=== PATIENT | female | born 1965 ===

== ENCOUNTER 2020-10-25 10:22 | Outpatient (REF) | payer OTHER, SELFPAY ==
[2020-10-25 11:27] LABS: Alanine Aminotransferase 23 U/L (0-31); Albumin Level 4.2 g/dL (3.5-5.0); Alkaline Phosphatase 126 U/L (39-117); Anion Gap 11 (12-20); Aspartate Amino Transferase 22 U/L (5-31); Bilirubin Total 0.5 mg/dL (0.0-1.0); Blood Urea Nitrogen 18 mg/dL (9-16); Calcium 9.2 mg/dL (8.4-10.2); Carbon Dioxide 28 mmol/L (22-29); Chloride 107 mmol/L (96-108); Cholesterol 143 mg/dL; Estimated Glomerular Filt Rate > 60; Glucose Fasting 92 mg/dL (60-99); HDL Cholesterol 63 mg/dL; LDL Cholesterol Calculated 68 mg/dl; Potassium 4.2 mmol/l (3.3-5.1); Sodium 142 mmol/L (135-145); Total Protein 6.8 g/dL (6.5-8.0); Triglycerides 61 mg/dL
== END 2020-10-25 10:23 | disposition home or self-care (01) ==
LOC: HO.LAB 10:22
PROVIDERS: PCP Internal Medicine; Visit Provider Internal Medicine
DX: E78.00 Pure hypercholesterolemia, unspecified (principal)
CPT/HCPCS: 36415; 80053; 80061

== ENCOUNTER 2020-12-13 15:18 | Outpatient (REF) | payer OTHER, SELFPAY ==
--- NOTE | ~2020-12-13 | MM_ITS ---
EXAMINATION: MM SCREENING DIGITAL BREAST TOMOSYNTHESIS, BILATERAL CLINICAL INFORMATION: Screening. Asymptomatic. The lifetime risk of breast cancer based on the Tyrer-Cuzick Model is 7%. COMPARISON: Mammography: 12/08/2019, 09/10/2018 TECHNIQUE: Digital breast tomosynthesis is performed in both the craniocaudal and mediolateral oblique views along with computer-aided detection (CAD). Synthesized 2D images are generated from the tomosynthesis. FINDINGS: There are scattered areas of fibroglandular density (ACR BI-RADS breast composition Category b). There is fine fibronodular parenchymal parenchymal pattern. Small stable nodularity again noted medial left breast similar to prior studies. There is no interval developing density or architectural abnormality. No abnormal calcifications. No significant changes. MM/MM tomosynthesis screening BI IMPRESSION: No mammographic evidence of malignancy. ASSESSMENT: BI-RADS 2: Benign RECOMMENDATION: Routine annual mammography screening. This patient's information was entered into a reminder system with a target due date for their next mammogram.
== END 2020-12-13 15:19 | disposition home or self-care (01) ==
LOC: HO.MAMMO 15:18
PROVIDERS: PCP Internal Medicine; Visit Provider Internal Medicine
DX: Z12.31 Encounter for screening mammogram for malignant neoplasm of breast (principal)
CPT/HCPCS: 77063; 77067

== ENCOUNTER 2021-08-29 08:33 | Outpatient (REF) | payer OTHER, SELFPAY ==
[2021-08-29 10:00] LABS: Alanine Aminotransferase 23 U/L (0-31); Albumin Level 4.3 g/dL (3.5-5.0); Alkaline Phosphatase 137 U/L (39-117); Anion Gap 12 (12-20); Aspartate Amino Transferase 23 U/L (5-31); Bilirubin Total 0.6 mg/dL (0.0-1.0); Blood Urea Nitrogen 18 mg/dL (9-16); Calcium 9.4 mg/dL (8.4-10.2); Carbon Dioxide 27 mmol/L (22-29); Chloride 105 mmol/L (96-108); Cholesterol 174 mg/dL; Estimated Glomerular Filt Rate > 60; Glucose Fasting 92 mg/dL (60-99); HDL Cholesterol 62 mg/dL; LDL Cholesterol Calculated 93 mg/dl; Potassium 3.9 mmol/L (3.3-5.1); Sodium 140 mmol/L (135-145); Total Protein 7.1 g/dL (6.5-8.0); Triglycerides 96 mg/dL
== END 2021-08-29 08:34 | disposition home or self-care (01) ==
LOC: HO.LAB 08:33
PROVIDERS: PCP Internal Medicine; Visit Provider Internal Medicine
DX: E66.9 Obesity, unspecified (principal); E78.5 Hyperlipidemia, unspecified
CPT/HCPCS: 36415; 80053; 80061; 84443

== ENCOUNTER 2021-12-20 10:42 | Outpatient (REF) | payer OTHER, SELFPAY ==
--- NOTE | ~2021-12-20 | MM_ITS ---
EXAMINATION: MM SCREENING DIGITAL BREAST TOMOSYNTHESIS, BILATERAL CLINICAL INFORMATION: Screening. Asymptomatic. The lifetime risk of breast cancer based on the Tyrer-Cuzick Model is 7%. COMPARISON: Mammography: 12/13/2020, 12/08/2019, 09/10/2018 TECHNIQUE: Digital breast tomosynthesis is performed in both the craniocaudal and mediolateral oblique views along with computer-aided detection (CAD). Synthesized 2D images are generated from the tomosynthesis. Additional bilateral MLO views are provided. FINDINGS: There are scattered areas of fibroglandular density (ACR BI-RADS breast composition Category b). There are no significant masses, abnormal calcifications, or other abnormalities. Background stromal markings are stable. No developing density. No architectural abnormality. The axilla and skin contours are unremarkable. No significant changes. MM/MM tomosynthesis screening BI IMPRESSION: No mammographic evidence of malignancy. ASSESSMENT: BI-RADS 1: Negative RECOMMENDATION: Routine annual mammography screening. This patient's information was entered into a reminder system with a target due date for their next mammogram.
== END 2021-12-20 10:43 | disposition home or self-care (01) ==
LOC: HO.MAMMO 10:42
PROVIDERS: Visit Provider Internal Medicine
DX: Z12.31 Encounter for screening mammogram for malignant neoplasm of breast (principal)
CPT/HCPCS: 77063; 77067

== ENCOUNTER 2022-12-12 08:53 | Outpatient (REF) | payer OTHER, SELFPAY ==
[2022-12-12 09:09] LABS: MANUAL DIFF FLAG NO
[2022-12-12 09:20] LABS: Basophils Percent Auto 0.8 % (0-2); Eosinophils Absolute Auto 0.1 X10*3/uL (0.0-0.4); Eosinophils Percent Auto 2.4 % (0-4); Hematocrit 39.2 % (37.0-47.0); Hemoglobin 12.7 g/dl (12.0-16.0); Imm Gran Abs Auto 0.02 X10*3/uL (0.00-0.03); Imm Gran Pct Auto 0.4 % (0.0-0.4); Lymphocytes Absolute Auto 1.3 X10*3/uL (1.2-4.9); Mean Corpuscular HGB Conc 32.4 g/dl (31.0-35.0); Mean Corpuscular Hemoglobin 27.3 pg (27.0-33.0); Mean Corpuscular Volume 84.3 fL (80.0-98.0); Mean Platelet Volume 11.3 fL (9.4-12.3); Monocytes Absolute Auto 0.3 X10*3/uL (0.1-1.2); Monocytes Percent Auto 6.1 % (2-11); Neutrophils Absolute Auto 3.3 x10*3/uL (2.0-8.3); Neutrophils Percent Auto 65.3 % (45-73); Platelet Count 192 X10*3/uL (160-400); Red Blood Count 4.65 X10*6/uL (4.20-5.50); Red Cell Distribution Width 13.5 % (11.0-16.0); White Blood Count 5.1 X10*3/uL (4.8-10.8)
[2022-12-12 09:41] LABS: Appearance Urine Clear; Color Urine Yellow; Glucose Urine UA Negative (Negative); Leukocyte Esterase Urine Negative (Negative); Nitrite Urine Negative (Negative); PH 5.5 (5.0-9.0); Urine Blood Negative (Negative); Urine Ketones Negative (Negative); Urine Protein Negative (Neg-Trace)
[2022-12-12 10:08] LABS: Alanine Aminotransferase 19 U/L (0-31); Albumin Level 4.4 g/dL (3.5-5.0); Alkaline Phosphatase 104 U/L (39-117); Anion Gap 12 (12-20); Aspartate Amino Transferase 26 U/L (5-31); Bilirubin Total 0.7 mg/dL (0.0-1.0); Blood Urea Nitrogen 18 mg/dL (9-16); Calcium 9.5 mg/dL (8.4-10.2); Carbon Dioxide 27 mmol/L (22-29); Chloride 106 mmol/L (96-108); Cholesterol 167 mg/dL; Estimated Glomerular Filt Rate > 60; Glucose Fasting 93 mg/dL (60-99); HDL Cholesterol 65 mg/dL; LDL Cholesterol Calculated 91 mg/dl; Potassium 4.3 mmol/L (3.3-5.1); Sodium 141 mmol/L (135-145); Total Protein 6.8 g/dL (6.5-8.0); Triglycerides 58 mg/dL
[2022-12-12 10:25] LABS: Vitamin D 25-OH Total 34.1 ng/mL (>30)
== END 2022-12-12 08:54 | disposition home or self-care (01) ==
LOC: HO.LAB 08:53
PROVIDERS: PCP Internal Medicine; Visit Provider Internal Medicine
DX: E78.00 Pure hypercholesterolemia, unspecified (principal); E55.9 Vitamin D deficiency, unspecified; R30.0 Dysuria; I10 Essential (primary) hypertension
CPT/HCPCS: 36415; 80053; 80061; 81003; 82306; 84443; 85025

== ENCOUNTER 2022-12-26 10:48 | Outpatient (REF) | payer OTHER, SELFPAY ==
--- NOTE | ~2022-12-26 | MM_ITS ---
EXAMINATION: MM SCREENING DIGITAL BREAST TOMOSYNTHESIS, BILATERAL CLINICAL INFORMATION: Screening. Asymptomatic. The lifetime risk of breast cancer based on the Tyrer-Cuzick Model is 7%. COMPARISON: Mammography: 12/20/2021, 12/13/2020, 12/08/2019, 09/10/2018 TECHNIQUE: Digital breast tomosynthesis is performed in both the craniocaudal and mediolateral oblique views along with computer-aided detection (CAD). Synthesized 2D images are generated from the tomosynthesis. FINDINGS: There are scattered areas of fibroglandular density (ACR BI-RADS breast composition Category b). There are no significant masses, abnormal calcifications, or other abnormalities. There is stable smooth nodularity medial left breast, likely intramammary nodes. No developing density or architectural abnormality. The axilla and skin contours are unremarkable. No significant changes. MM/MM tomosynthesis screening BI IMPRESSION: No mammographic evidence of malignancy. ASSESSMENT: BI-RADS 2: Benign RECOMMENDATION: Routine annual mammography screening. This patient's information was entered into a reminder system with a target due date for their next mammogram.
== END 2022-12-26 10:49 | disposition home or self-care (01) ==
LOC: HO.MAMMO 10:48
PROVIDERS: PCP Internal Medicine; Visit Provider Nurse Practitioner
DX: Z12.31 Encounter for screening mammogram for malignant neoplasm of breast (principal)
CPT/HCPCS: 77063; 77067

== ENCOUNTER 2023-05-03 08:15 | Outpatient (REF) | payer OTHER, SELFPAY ==
[2023-05-03 09:30] LABS: Alanine Aminotransferase 25 U/L (0-31); Albumin Level 4.3 g/dL (3.5-5.0); Alkaline Phosphatase 102 U/L (39-117); Anion Gap 10 (12-20); Aspartate Amino Transferase 29 U/L (5-31); Bilirubin Total 0.5 mg/dL (0.0-1.0); Blood Urea Nitrogen 17 mg/dL (9-16); Calcium 9.7 mg/dL (8.4-10.2); Carbon Dioxide 27 mmol/L (22-29); Chloride 107 mmol/L (96-108); Cholesterol 172 mg/dL; Estimated Glomerular Filt Rate > 60; Glucose Fasting 88 mg/dL (60-99); HDL Cholesterol 64 mg/dL; LDL Cholesterol Calculated 88 mg/dl; Potassium 3.7 mmol/L (3.3-5.1); Sodium 140 mmol/L (135-145); Total Protein 7.2 g/dL (6.5-8.0); Triglycerides 103 mg/dL
== END 2023-05-03 08:16 | disposition home or self-care (01) ==
LOC: HO.LAB 08:15
PROVIDERS: PCP Internal Medicine; Visit Provider Internal Medicine
DX: E78.00 Pure hypercholesterolemia, unspecified (principal)
CPT/HCPCS: 36415; 80053; 80061

== ENCOUNTER 2023-05-09 11:16 | Outpatient (AMB) | payer OTHER, SELFPAY ==
[2023-05-09 11:23] VITALS: BP 120/78; PULSE 71; O2SAT 97; BMI 30.3
--- NOTE | 2023-05-09 11:23 | A.OFFPC_ITS ---
Vital Signs 05/09/23 11:23 Height 4 ft 10 in Weight 145 lb 2 oz BMI 30.3 BP 120/78 Blood Pressure Location Lt brachial Position Sitting Pulse 71 Pulse Source Pulse Oximeter Pulse Oximetry (%) 97 Oxygen Delivery Method Room Air Intake Visit Reasons: hyperlipidemia, asthma Elderly Companion Required: No Accompanied by: Self / Same As Patient Allergies No Known Allergies Allergy (Verified 05/09/23 11:46) Medication List - Last Reconciled 05/09/23 by Chente Bill MD atorvastatin 10 mg PO DAILY 90 days cetirizine (All Day Allergy (cetirizine)) 10 mg PO DAILY PRN 90 days fluticasone propionate 50 mcg/actuation 2 sprays intranasal DAILY 30 days Ventolin HFA 90 mcg/actuation (albuterol sulfate) 2 puffs inhalation Q6H PRN 30 days NS Tobacco use date assessed: 05/09/23 Dental Screening Dental Screen Date: 05/09/23 Did you have a dental visit in the last 12 months?: Yes Did you have a dental problem in the last 6 months where you did not have access to dental care?: No Was dental information given to patient?: Patient has dentist HPI hyperlipidemia, asthma HPI Details Patient comes in today for her follow up visit States that she has been experiencing recurrent bilateral inguinal pains lately and would like to see if she can get a referral to see gynecology to get this checked out Recalls getting a pelvic US done a few years ago but is not sure what the US showed She denies any headaches or dizziness Denies any chest pains, no SOB - states that her asthma has been better controlled lately No nausea/vomiting and no change in bowel habits noted Adds that she would like to get a referral to see someone about possibly getting breast reduction surgery - states that she has frequent neck and upper back pains and feels that her breasts are too large for her size (she is 4'10 ) and that they are a predominant cause of her neck and back pains Needs her Atorvastatin Rx refilled Had her follow up labs done last week - to discuss her results [facility] Medical History (Updated 05/09/23 @ 11:58 by Chente Bill MD) Allergic rhinitis Asthma Dyslipidemia VICENTA (generalized anxiety disorder) Ingrown toenail Insomnia Mild asthma Obese Obesity (BMI 30-39.9) Overweight (BMI 25.0-29.9) Pure hypercholesterolemia Surgical History History of eye surgery History of hysteroscopy History of tubal ligation Family History Father Liver problem Alcoholism Substance use disorder Mother Hypertension Maternal Grandmother Heart disease Maternal Grandfather No problems noted. Paternal Grandfather Throat cancer Social History Housing: Apartment Alcohol intake: current Alcohol intake frequency: holidays/special occasions only Patient Tobacco Use Status: Never used Tobacco e-Cigarette/Vaping Use: Never Used Second Hand Smoke Exposure: No service: No Current occupational status: unemployed Cognitive needs: No Hearing needs: No Vision needs: No Questionnaire PHQ-9 Over the last 2 weeks, how often have you been bothered by any of the following problems? 1. Little interest or pleasure in doing things: not at all 2. Feeling down, depressed, or hopeless: not at all 3. Trouble falling or staying asleep, or sleeping too much: several days 4. Feeling tired or having little energy: several days 5. Poor appetite or overeating: nearly every day 6. Feeling bad about yourself - or that you are a failure or have let yourself or your family down: not at all 7. Trouble concentrating on things, such as reading the newspaper or watching television: not at all 8. Moving or speaking so slowly that other people could have noticed. Or the opposite - being so fidgety or restless that you have been moving around a lot more than usual: not at all 9. Thoughts that you would be better off or of hurting yourself in some way: not at all Total score: 5 Depression Screening Interpretation: Positive Depression Screening Follow-up: Follow-[place] Visit Requested [id number] - PHQ-9 Billing: Yes Source: Developed by Drs. Willem El, Violeta Kwon, Khai Lopez and colleagues, with an educational alex from [email or web address]. Thrive Questionnaire Date Thrive assessed: 05/09/23 I am a: Patient What is your living situation today?: I have a steady place to live Within the past 12 months, did the food you bought not last and you didn't have the money to get more?: Never true Within the past 12 months, did you worry whether your food would run out before you got money to buy more?: Never true Do you have trouble paying for medicines?: No Do you have trouble getting transportation to medical appointments?: No Do you have trouble paying your heating and electricity bill?: No Do you have trouble taking care of your child, family member or friend?: No Do you have trouble with day-to-day activities such as bathing, preparing meals, shopping, managing finances, etc.?: No Are you currently unemployed and looking for a job?: No Are you interested in more education?: No Please select the resources that you would like help with: None Currently or been in a relationship where the following occur: no concerns reported AUDIT C Alcohol Use Questionnaire (AUDIT-C) 1. How often do you have a drink containing alcohol?: Monthly or less 2. How many drinks containing alcohol do you have on a typical day when you are drinking?: 1 or 2 3. How often do you have six or more drinks on one occasion?: Never Total Score: 1 Score Reviewed/Action Taken: Yes VICENTA-7 AMB Questionnaire VICENTA-7 Date VICENTA - 7 assessed: 05/09/23 Feeling nervous, anxious, or on edge: 3 = Nearly every day Not being able to stop or control worryin = Several days Worrying too much about different things: 1 = Several days Trouble relaxin = Several days Being so restless that it is hard to sit still: 1 = Several days Becoming easily annoyed or irritable: 0 = Not at all Feeling afraid as if something awful might happen: 1 = Several days Total VICENTA-7 score (0-4 normal; 5-9 mild; 10-14 moderate; 15-21 severe): 8 Source: Developed by Drs. Willem El, Violeta Kwon, Khai Lopez and colleagues, with an educational alex from [email or web address]. Review of Systems Const Denies chills, Reports fatigue, Denies fever(s) and Denies headache(s) ENT Denies dysphagia, Denies dizziness, Denies otalgia, Denies headache(s), Denies nasal congestion, Reports neck pain (frequent), Denies odynophagia and Denies sore throat Card Denies chest pain, Denies palpitations and Denies dyspnea Resp Denies cough and Denies dyspnea GI Reports abdominal pain (on and off over both inguinal areas lately), Denies constipation, Denies dysphagia, Denies heartburn, Denies diarrhea, Denies nausea, Denies odynophagia and Denies vomiting Denies difficulty voiding, Denies nocturia and Denies dysuria Musc Reports back pain (recurrent over her upper back) and Reports neck pain (frequent) Neuro Denies dizziness and Denies headache(s) Endo Reports fatigue and Denies palpitations Physical exam (Primary Care) Vital Signs: Last Vital Signs Pulse 71 05/09/23 11:23 BP 120/78 05/09/23 11:23 Pulse Ox 97 05/09/23 11:23 Oxygen Delivery Method Room Air 05/09/23 11:23 BMI result Body Mass Index 30.3 Tobacco/Smoking Status: Tobacco use Status Tobacco use date assessed 05/09/23 05/09/23 11:28 Patient Tobacco Use Status Never used Tobacco 05/09/23 11:28 e-Cigarette/Vaping Use Never Used 05/09/23 11:28 PHQ-9: PHQ-9 Score PHQ-9: Total score 5 05/09/23 11:28 Depression Screening Interpretation: Positive Depression Screening Follow-up: Follow-up Visit Requested Thrive Assessment: Date of Thrive Assessment Date Thrive assessed 05/09/23 05/09/23 11:28 Currently or been in a relationship where the following occur: no concerns reported Const General: no acute distress and alert HENMT Ears: TM's normal bilaterally and EAC's normal Throat: Yes posterior oropharynx normal and Yes tonsils normal (no TP congestion) Neck Neck: Yes no lymphadenopathy and Yes supple Resp Auscultation: clear to auscultation bilaterally, no rales and no wheezes Cardio Rate: regular rate Rhythm: regular rhythm Heart sounds: no murmurs GI Palpation (GI): Soft to palpation and nontender Auscultation: normal bowel sounds Other: (+) tenderness over the inguinal areas bilaterally; no rebound tenderness noted Back/Spine/Pelvis Cervical Spine: cervical muscular tenderness (bilateral) Thoracic/Lumbar Spine: paraspinal muscle tenderness bilaterally in the upper thoracic and in the mid thoracic Skin General skin exam: no rashes or lesions noted Extrem General: Yes no clubbing, cyanosis or edema Results Reviewed Results Reviewed: Laboratory Tests 05/03/23 08:22 Sodium 140 Potassium 3.7 Creatinine 0.75 Estimated GFR > 60 Fasting Glucose 88 Calcium 9.7 AST 29 ALT 25 Triglycerides 103 Cholesterol 172 LDL Cholesterol, Calc 88 HDL Cholesterol 64 Assessment and Plan Assessment & Plan (1) Pure hypercholesterolemia: Code(s): E78.00 - Pure hypercholesterolemia, unspecified Plan: Results of her labs done last week reviewed and discussed with patient Reinforced low cholesterol diet Continue Atorvastatin 10 mg QD - Rx refilled Will recheck labs and fasting lipids in 4 months for follow up (2) Asthma: Code(s): J45.909 - Unspecified asthma, uncomplicated Qualifiers: Asthma severity: mild Asthma persistence: intermittent Asthma complication type: uncomplicated Qualified Code(s): J45.20 - Mild intermittent asthma, uncomplicated Plan: Stable/controlled lately Continue Albuterol HFA 2 inhalations Q 6 hours PRN (3) Allergic rhinitis: Code(s): J30.9 - Allergic rhinitis, unspecified Qualifiers: Allergic rhinitis trigger: pollen Allergic rhinitis seasonality: seasonal Qualified Code(s): J30.1 - Allergic rhinitis due to pollen Plan: Continue Cetirizine 10 mg QD PRN and Fluticasone 50 mcg nasal spray QD PRN (4) Bilateral groin pain: Code(s): R10.31 - Right lower quadrant pain; R10.32 - Left lower quadrant pain Plan: Pelvic US done back in 2019 revealed no suspicious adnexal findings but there was an enlarging 4.1 cm myometrial mass in the posterior uterine body back then - possible fibroid Will send patient for repeat pelvic US for further evaluation Per request, will also refer her to gynecology for further evaluation and management (5) Bilateral pendulous breasts: Code(s): N64.89 - Other specified disorders of breast Plan: Per request, will also refer her to plastic surgery for consideration for reduction mammoplasty as she feels that her breasts are too large for her size and are a prominent cause of her recurrent neck and upper back pains (6) Obesity (BMI 30-39.9): Code(s): E66.9 - Obesity, unspecified Plan: Reinforced diet/exercise as tolerated/lose weight Plan Follow up in 4 months Orders: Orders US pelvic complete Today R10.31 - Right lower quadrant pain, R10.32 - Left lower quadrant pain, Z86.018 - Personal history of other benign neoplasm Comprehensive [place]. Panel Fast 4 Months E78.00 - Pure hypercholesterolemia, unspecified Lipid Panel 4 Months E78.00 - Pure hypercholesterolemia, unspecified TSH reflex Free T4 4 Months E78.00 - Pure hypercholesterolemia, unspecified Vitamin D 25-OH Total 4 Months E55.9 - Vitamin D deficiency, unspecified Complete Blood Count Auto Diff 4 Months I10 - Essential (primary) hypertension UA CC w/rflx Micro + Cult 4 Months R30.0 - Dysuria Referrals ENDOCRINOLOGY PHYSICIAN Referral R10.31 - Right lower quadrant pain, R10.32 - Left lower quadrant pain, Z86.018 - Personal history of other benign neoplasm Plastic Surgery Referral N64.89 - Other specified disorders of breast Medications: Refilled atorvastatin 10 mg PO DAILY 90 days 90 tabs 1RF Coding Level of Care Code Est Pt Level 4 (83143) Diagnoses Pure hypercholesterolemia E78.00 Asthma J45.20 Asthma severity: mild Asthma persistence: intermittent Asthma complication type: uncomplicated Allergic rhinitis J30.1 Allergic rhinitis trigger: pollen Allergic rhinitis seasonality: seasonal Bilateral groin pain R10.31; R10.32 Bilateral pendulous breasts N64.89 Obesity (BMI 30-39.9) E66.9
== END 2023-05-09 12:03 | disposition home or self-care (01) ==
PROVIDERS: PCP Internal Medicine; Visit Provider Internal Medicine
DX: E78.00 Pure hypercholesterolemia, unspecified (principal); J45.20 Mild intermittent asthma, uncomplicated; Z68.30 Body mass index [BMI] 30.0-30.9, adult; E66.9 Obesity, unspecified; J30.1 Allergic rhinitis due to pollen; R10.31 Right lower quadrant pain; R10.32 Left lower quadrant pain; N64.89 Other specified disorders of breast
CPT/HCPCS: 99214

== ENCOUNTER 2023-05-22 12:56 | Outpatient (REF) | payer OTHER, SELFPAY ==
[2023-05-23 05:19] LABS: CT PCR NOT DETECTED (Not Detect.); NG PCR NOT DETECTED (Not Detect.)
== END 2023-05-22 12:57 | disposition home or self-care (01) ==
LOC: HO.LNP 12:56
PROVIDERS: PCP Internal Medicine; Visit Provider Obstetrics & Gynecology
DX: R10.2 Pelvic and perineal pain (principal); Z20.2 Contact with and (suspected) exposure to infections with a predominantly sexual mode of transmission
CPT/HCPCS: 0353U; 81002; 99202

== ENCOUNTER 2023-05-22 12:56 | Outpatient (AMB) | payer OTHER, SELFPAY ==
[2023-05-22 13:37] VITALS: BP 120/72; BMI 30.3
--- NOTE | 2023-05-22 13:37 | A.OFFVIS_ITS ---
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 Pelvic ultrasound was ordered and scheduled for 06/06. [facility] Medical History Allergic rhinitis Asthma Dyslipidemia VICENTA (generalized anxiety disorder) Ingrown toenail Insomnia Mild asthma Obese Obesity (BMI 30-39.9) Overweight (BMI 25.0-29.9) Pure hypercholesterolemia Surgical History History of eye surgery History of hysteroscopy History of tubal ligation Family History Father Liver problem Alcoholism Substance use disorder Mother Hypertension Maternal Grandmother Heart disease Maternal Grandfather No problems noted. Paternal Grandfather Throat cancer Social History Housing: Apartment Alcohol intake: current Alcohol intake frequency: holidays/special occasions only Patient Tobacco Use Status: Never used Tobacco e-Cigarette/Vaping Use: Never Used Second Hand Smoke Exposure: No service: No Current occupational status: unemployed Cognitive needs: No Hearing needs: No Vision needs: No Review of Systems Const All systems reviewed & are unremarkable except as noted in HPI and below Physical Exam Vital Signs: Last Vital Signs BP 120/72 05/22/23 13:37 BMI result Body Mass Index 30.3 General: Yes no CVA tenderness External Female Exam: normal external appearance and normal appearance of the urethra Speculum Exam - Vagina: normal appearance of the vagina, normal palpation, no lesions and no masses Speculum Exam - Cervix: normal appearance of the cervix, normal palpation, no lesions, no masses and nontender Bimanual exam- vagina & uterus: normal bimanual exam, normal palpation, uterine size normal, normal palpation, uterine shape normal, No Cervical tenderness present and non-tender Bimanual Exam- Adnexa, other: normal adnexae Back/Spine/Pelvis Back: no CVA tenderness Results AMB Urinalysis Dipstick UR Leukocytes Trace Last Edit by Shilpi Root, ESCROW REPRESENTATIVE on 05/22/23 13:43 UR Nitrite Negative Last Edit by Shilpi Root, ESCROW REPRESENTATIVE on 05/22/23 13:43 UR Urobilinogen Normal Last Edit by Shilpinatalie Sigalaero, ESCROW REPRESENTATIVE on 05/22/23 13:43 UR Protein Negative Last Edit by Shilpi Root, ESCROW REPRESENTATIVE on 05/22/23 13:43 UR Ph 6.0 Last Edit by Shilpinatalie Sigalaero, ESCROW REPRESENTATIVE on 05/22/23 13:43 UR Blood Negative Last Edit by Shilpi Sigalaero, ESCROW REPRESENTATIVE on 05/22/23 13:43 UR Specific [place] 1.020 Last Edit by Shilpi Root, ESCROW REPRESENTATIVE on 05/22/23 13:43 UR Ketone Negative Last Edit by Shilpi Sigalaero, ESCROW REPRESENTATIVE on 05/22/23 13:43 UR Bilirubin Negative Last Edit by Shilpi Sigalaero, ESCROW REPRESENTATIVE on 05/22/23 13:43 UR Glucose Negative Last Edit by Shilpi Sigalaero, ESCROW REPRESENTATIVE on 05/22/23 13:43 Results Reviewed Results Reviewed: Laboratory Last Values Urine pH (Clinic) 6.0 05/22/23 13:42 Specific [place] (Clinic) 1.020 05/22/23 13:42 Ur Protein (Clinic) Negative 05/22/23 13:42 Ur Ketones (Clinic) Negative 05/22/23 13:42 Urine Blood (Clinic) Negative 05/22/23 13:42 Urine Nitrite Negative 05/22/23 13:42 Urine Bilirubin (Clinic) Negative 05/22/23 13:42 Urobilinogen (Clinic) Normal 05/22/23 13:42 Leukocyte Esterase (Clinic) Trace 05/22/23 13:42 Urine Glucose (Clinic) Negative 05/22/23 13:42 Assessment & Plan Assessment & Plan (1) Pelvic pain: Code(s): R10.2 - Pelvic and perineal pain Plan: Urine dip done in the office was negative. GC and chlamydia taken and pelvic ultrasound was ordered by PCP and is scheduled. Discussed with the patient the differential diagnosis of pelvic pain including but not limited to adnexal, uterine masses, pelvic infections (PID), GI the (Irritable bowel syndrome, diverticulitis, others), musculoskeletal, myofascial pain abdominal wall , adhesions, endometriosis, psychological and others causes. Will check results and treat accordingly. All questions answered, the patient verbalized understanding. Instructed the patient to schedule follow-up appointment in 2 weeks Orders: Orders AMB Urinalysis Dipstick Today R10.2 - Pelvic and perineal pain Coding Level of Care Code New Pt Level 3 (99981) Diagnoses Pelvic pain R10.2
== END 2023-05-22 15:46 | disposition home or self-care (01) ==
LOC: HO.HWS 12:56
PROVIDERS: PCP Internal Medicine; Visit Provider Obstetrics & Gynecology
DX: R10.2 Pelvic and perineal pain (principal)
CPT/HCPCS: 99203

== ENCOUNTER 2023-06-06 09:01 | Outpatient (REF) | payer OTHER, SELFPAY ==
--- NOTE | ~2023-06-06 | US_ITS ---
EXAMINATION: US PELVIS COMPLETE CLINICAL INFORMATION: Right lower quadrant pain; the last menstrual period is uncertain. COMPARISON: Pelvic ultrasound dated 08/02/2019. TECHNIQUE: Transabdominal and transvaginal imaging were performed. FINDINGS: The uterus is of normal size and echogenicity measuring 8.2 x 3.6 x 5.8 cm. The endometrial stripe is obscured by a central upper uterine fibroid. FIBROIDS: There is 1 fibroid seen. 1. Location: Central upper uterus. Size: 3.2 x 3.4 x 3.4 cm. Prior: 4.1 x 3.1 x 3.4 cm. Fibroid characteristics: Isoechoic. Both ovaries are of normal size and echogenicity. The right ovary measures 2.1 x 1.1 x 1.4 cm for a volume of 1.7 mL. The left ovary measures 1.4 x 0.9 x 1.3 cm for a volume of 0.9 mL. There is no pelvic free fluid. No adnexal mass is seen. US/US pelvic and transvaginal IMPRESSION: A stable to diminished central myometrial fibroid is redemonstrated. The endometrial stripe is obscured by this fibroid. No adnexal mass or pelvic free fluid is noted.
== END 2023-06-06 09:02 | disposition home or self-care (01) ==
LOC: HO.US 09:01
PROVIDERS: Visit Provider Internal Medicine
DX: R10.31 Right lower quadrant pain (principal)
CPT/HCPCS: 76830; 76856

== ENCOUNTER 2023-08-08 10:00 | Outpatient (RCR) | payer OTHER, SELFPAY ==
--- NOTE | 2023-07-09 12:33 | MHC.PT.EP ---
[facility] [place] Office [place] Office [place] Office [address] [place] Bennett [address] [phone] F: [phone] F: [phone] F: [phone] F: [phone] Physical Therapy Plan of Care Date of Evaluation: 07/09/23 Date of Surgery: Diagnosis: back pain Assessment: Pt is a 57yo female who presents to PT for upper back pain. PT exam reveals mild cervicothoracic curvature to the R, weakness of periscap musculature, impaired thoracic ext ROM, and pain with palpation. Skilled PT indicated to reduce pain, improve posture, improve periscap and core strength, teach exercises for HEP and self-management of symptoms. Pt is motivated to participate and agrees with POC. Frequency and Duration: The patient will be seen 2x/week x 4 weeks Short Term Goals: 1. In 2 weeks patient will be able to complete self thoracic extension strength 2. In 2 weeks patient will demonstrate improved B/L periscap strength of rhomboids and middle trap to 4/5. 3. In 2 weeks patient will be able to sit x 2 minutes with neutral cervicothoracic position. Longterm Goals: 1. 4+/5 B/L periscap strength all planes in 4 weeks. 2. In 4 weeks, patient will report < 2/10 pain when completing work tasks. 3. Pt will improve overall functional mobility as demonstrated by score of 0% on TASHA. Treatment Plan: Modalities to reduce pain, spasms and effusion. Manual therapy to restore motion and function. Therapeutic exercise to improve strength and flexibility. Neuromuscular re-education for posture and balance. Therapeutic activities to return to functional activities of daily living. Electronically signed by: Kat English PT, DPT Please sign and return to therapist. Thank you for your referral.
--- NOTE | 2023-08-22 12:52 | MHC.PT.DC ---
[facility] [place] [facility] [place] [facility] [place] [facility] [address] Drake Bennett [address] [phone] F: [phone] F: [phone] F: [phone] F: [phone] Physical Therapy Discharge Report Diagnosis: back pain, upper back pain Date of Surgery: Date of Evaluation: 07/09/23 Date of Discharge: 08/08/23 Treatments to Date: 6 Cancellations to Date: No Shows to Date: Discharge Status: Improved Function Discharge Summary: Pt participated in 6 PT sessions for upper back pain. Addressed periscap strength, improvement of posture, symptom management. However, pt has not made improvements towards meeting goal for pain reduction, and no improvement in TASHA noted. Pt recommended to continue daily postural corrections, stretches, periscap strengthening as tolerated. Pt recommended to return to MD with report of completion of PT with no change in pain at this time. Pt would like to discuss breast reduction with MD to help her pain. [ End ] Electronically signed by: Kat English PT. DPT Please sign and return to therapist. Thank you for your referral.
== END 2023-09-18 12:15 | disposition home or self-care (01) ==
LOC: HO.PT 10:00
PROVIDERS: PCP Internal Medicine; Visit Provider Internal Medicine
DX: M54.50 Low back pain, unspecified (principal)
CPT/HCPCS: 97110; 97140; 97162

== ENCOUNTER 2023-09-12 09:04 | Outpatient (REF) | payer OTHER, SELFPAY ==
[2023-09-12 09:31] LABS: MANUAL DIFF FLAG NO
[2023-09-12 09:43] LABS: Basophils Percent Auto 0.4 % (0-2); Eosinophils Absolute Auto 0.1 X10*3/uL (0.0-0.4); Eosinophils Percent Auto 1.3 % (0-4); Hemoglobin 12.4 g/dl (12.0-16.0); Imm Gran Abs Auto 0.02 X10*3/uL (0.00-0.03); Imm Gran Pct Auto 0.4 % (0.0-0.4); Lymphocytes Absolute Auto 1.2 X10*3/uL (1.2-4.9); Lymphocytes Percent Auto 21.4 % (20-40); Mean Corpuscular Hemoglobin 25.8 pg (27.0-33.0); Mean Corpuscular Volume 83.3 fL (80.0-98.0); Mean Platelet Volume 10.9 fL (9.4-12.3); Monocytes Absolute Auto 0.3 X10*3/uL (0.1-1.2); Monocytes Percent Auto 5.9 % (2-11); Neutrophils Absolute Auto 3.9 x10*3/uL (2.0-8.3); Neutrophils Percent Auto 70.6 % (45-73); Platelet Count 214 X10*3/uL (160-400); Red Cell Distribution Width 13.8 % (11.0-16.0); White Blood Count 5.6 X10*3/uL (4.8-10.8)
[2023-09-12 10:21] LABS: Alanine Aminotransferase 15 U/L (0-31); Albumin Level 4.5 g/dL (3.5-5.0); Alkaline Phosphatase 119 U/L (39-117); Anion Gap 12 (12-20); Aspartate Amino Transferase 22 U/L (5-31); Bilirubin Total 0.6 mg/dL (0.0-1.0); Blood Urea Nitrogen 17 mg/dL (9-16); Calcium 9.7 mg/dL (8.4-10.2); Carbon Dioxide 28 mmol/L (22-29); Chloride 104 mmol/L (96-108); Cholesterol 181 mg/dL (<200); Estimated Glomerular Filt Rate > 60; Glucose Fasting 92 mg/dL (60-99); HDL Cholesterol 72 mg/dL (>40); LDL Cholesterol Calculated 94 mg/dL (<100); Potassium 3.8 mmol/L (3.3-5.1); Sodium 140 mmol/L (135-145); Total Protein 7.5 g/dL (6.5-8.0); Triglycerides 75 mg/dL (<150)
[2023-09-12 10:39] LABS: TSH reflex Free T4 0.77 uIU/mL (0.32-4.0); Vitamin D 25-OH Total 35.6 ng/mL (>30)
[2023-09-12 10:50] LABS: Appearance Urine Clear; Color Urine Yellow; Glucose Urine UA Negative (Negative); Leukocyte Esterase Urine Moderate (2+) (Negative); Nitrite Urine Negative (Negative); Specific Gravity - Urine 1.025 (1.005-1.025); UMIC TRIGGER UACC YES; Urine Blood Negative (Negative); Urine Ketones Negative (Negative); Urine Protein Negative (Neg-Trace)
[2023-09-12 10:55] LABS: Bacteria Urine None Seen (None Seen); Hyaline Casts Urine 0-2 /LPF (0-2); RBC Urine 0-2 /HPF (0-2); Squamous Epithelial Cell Urine 0-2 /HPF (0-2); UACC Culture Trigger YES
== END 2023-09-12 09:05 | disposition home or self-care (01) ==
LOC: HO.LAB 09:04
PROVIDERS: PCP Internal Medicine; Visit Provider Internal Medicine
DX: E78.00 Pure hypercholesterolemia, unspecified (principal); R30.0 Dysuria; E55.9 Vitamin D deficiency, unspecified; I10 Essential (primary) hypertension
CPT/HCPCS: 36415; 80053; 80061; 81001; 82306; 84443; 85025; 87086

== ENCOUNTER 2023-09-18 09:54 | Outpatient (AMB) | payer OTHER, SELFPAY ==
[2023-09-18 09:56] VITALS: BP 124/82; PULSE 78; O2SAT 97; BMI 30.6
--- NOTE | 2023-09-18 09:56 | A.OFFPC_ITS ---
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 Accompanied by: Self / Same As Patient Allergies No Known Allergies Allergy (Verified 09/18/23 10:25) Medication List - Last Reconciled 09/18/23 by Chente Bill MD atorvastatin 10 mg PO DAILY 90 days cetirizine (All Day Allergy (cetirizine)) 10 mg PO DAILY PRN 90 days fluticasone propionate 50 mcg/actuation 2 sprays intranasal DAILY 30 days Ventolin HFA 90 mcg/actuation (albuterol sulfate) 2 puffs inhalation Q6H PRN 30 days NS Tobacco use date assessed: 09/18/23 Dental Screening Dental Screen Date: 09/18/23 Did you have a dental visit in the last 12 months?: Yes Did you have a dental problem in the last 6 months where you did not have access to dental care?: No Was dental information given to patient?: Patient has dentist HPI hyperlipidemia, asthma HPI Details Patient comes in today for her follow up visit States that she feels okay Is still experiencing increased pain over her neck and upper back and bilateral shoulder areas States that she went to physical therapy - had a total of 6 sessions, with her last session on 08/22/2023 - and reported NO significant improvement of her symptoms with physical therapy and would like to revisit the option of breast reduction surgery to help relieve her chronic neck and upper back pain She denies any headaches or dizziness Denies any chest pains, no SOB No nausea/vomiting, no abdominal pain - states that her previous inguinal pains have resolved Would like to know how her pelvis US done back in May 2023 came out and if they showed anything of concern No change in bowel habits noted Had her follow up labs done last week - to discuss her results [facility] Medical History Obesity (BMI 30-39.9) Overweight (BMI 25.0-29.9) Asthma Pure hypercholesterolemia VICENTA (generalized anxiety disorder) Insomnia Allergic rhinitis Obese Ingrown toenail Dyslipidemia Mild asthma Surgical History History of hysteroscopy History of eye surgery History of tubal ligation Family History Father Liver problem Alcoholism Substance use disorder Mother Hypertension Maternal Grandmother Heart disease Maternal Grandfather No problems noted. Paternal Grandfather Throat cancer Social History Housing: Apartment Alcohol intake: current Alcohol intake frequency: holidays/special occasions only Patient Tobacco Use Status: Never used Tobacco e-Cigarette/Vaping Use: Never Used Second Hand Smoke Exposure: No service: No Current occupational status: unemployed Cognitive needs: No Hearing needs: No Vision needs: No Questionnaire PHQ-9 Over the last 2 weeks, how often have you been bothered by any of the following problems? 1. Little interest or pleasure in doing things: not at all 2. Feeling down, depressed, or hopeless: not at all 3. Trouble falling or staying asleep, or sleeping too much: several days 4. Feeling tired or having little energy: several days 5. Poor appetite or overeating: nearly every day 6. Feeling bad about yourself - or that you are a failure or have let yourself or your family down: not at all 7. Trouble concentrating on things, such as reading the newspaper or watching television: not at all 8. Moving or speaking so slowly that other people could have noticed. Or the opposite - being so fidgety or restless that you have been moving around a lot more than usual: not at all 9. Thoughts that you would be better off or of hurting yourself in some way: not at all Total score: 5 Depression Screening Interpretation: Positive Depression Screening Follow-up: Existing condition and Follow-up Visit Requested Depression Screening Done: Yes [id number] - PHQ-9 Billing: Yes Source: Developed by Drs. Willem El, Violeta Kwon, Khai Lopez and colleagues, with an educational alex from [employer]. Thrive Questionnaire Date Thrive assessed: 09/18/23 I am a: Patient What is your living situation today?: I have a steady place to live Within the past 12 months, did the food you bought not last and you didn't have the money to get more?: Never true Within the past 12 months, did you worry whether your food would run out before you got money to buy more?: Never true Do you have trouble paying for medicines?: No Do you have trouble getting transportation to medical appointments?: No Do you have trouble paying your heating and electricity bill?: No Do you have trouble taking care of your child, family member or friend?: No Do you have trouble with day-to-day activities such as bathing, preparing meals, shopping, managing finances, etc.?: No Are you currently unemployed and looking for a job?: No Are you interested in more education?: No Please select the resources that you would like help with: None Currently or been in a relationship where the following occur: no concerns reported AUDIT C Alcohol Use Questionnaire (AUDIT-C) 1. How often do you have a drink containing alcohol?: Monthly or less 2. How many drinks containing alcohol do you have on a typical day when you are drinking?: 1 or 2 3. How often do you have six or more drinks on one occasion?: Never Total Score: 1 Score Reviewed/Action Taken: Yes VICENTA-7 AMB Questionnaire VICENTA-7 Date VICENTA - 7 assessed: 09/18/23 Feeling nervous, anxious, or on edge: 3 = Nearly every day Not being able to stop or control worryin = Several days Worrying too much about different things: 1 = Several days Trouble relaxin = Several days Being so restless that it is hard to sit still: 1 = Several days Becoming easily annoyed or irritable: 0 = Not at all Feeling afraid as if something awful might happen: 1 = Several days Total VICENTA-7 score (0-4 normal; 5-9 mild; 10-14 moderate; 15-21 severe): 8 Source: Developed by Drs. Willem El, Violeta Kwon, Khai Lopez and colleagues, with an educational alex from [employer]. Review of Systems Const Denies chills, Denies fatigue, Denies fever(s) and Denies headache(s) ENT Denies dysphagia, Denies dizziness, Denies otalgia, Denies headache(s), Denies nasal congestion, Reports neck pain (recurrent/frequent), Denies odynophagia and Denies sore throat Card Denies chest pain, Denies palpitations and Denies dyspnea Resp Denies cough and Denies dyspnea GI Denies abdominal pain, Denies constipation, Denies dysphagia, Denies heartburn, Denies diarrhea, Denies nausea, Denies odynophagia and Denies vomiting Denies difficulty voiding, Denies nocturia, Denies dysuria and Denies urinary urgency Musc Reports back pain (chronic pain over her upper back bilaterally) and Reports neck pain (recurrent/frequent) Skin/Breast Denies rash Neuro Denies dizziness and Denies headache(s) Endo Denies fatigue and Denies palpitations Physical exam (Primary Care) Vital Signs: Last Vital Signs Pulse 78 09/18/23 09:56 BP 124/82 09/18/23 09:56 Pulse Ox 97 09/18/23 09:56 Oxygen Delivery Method Room Air 09/18/23 09:56 BMI result Body Mass Index 30.6 Tobacco/Smoking Status: Tobacco use Status Tobacco use date assessed 09/18/23 09/18/23 09:58 Patient Tobacco Use Status Never used Tobacco 09/18/23 09:58 e-Cigarette/Vaping Use Never Used 09/18/23 09:58 PHQ-9: PHQ-9 Score PHQ-9: Total score 5 09/18/23 10:27 Depression Screening Interpretation: Positive Depression Screening Follow-up: Existing condition and Follow-up Visit Requested Thrive Assessment: Date of Thrive Assessment Date Thrive assessed 09/18/23 09/18/23 09:58 Currently or been in a relationship where the following occur: no concerns reported Const General: no acute distress and alert HENMT Ears: TM's normal bilaterally and EAC's normal Throat: Yes posterior oropharynx normal and Yes tonsils normal (no TP congestion) Neck Neck: Yes no lymphadenopathy and Yes supple Resp Auscultation: clear to auscultation bilaterally, no rales and no wheezes Cardio Rate: regular rate Rhythm: regular rhythm Heart sounds: no murmurs GI Palpation (GI): Soft to palpation and nontender Auscultation: normal bowel sounds Back/Spine/Pelvis Cervical Spine: cervical muscular tenderness (bilateral) and Cervical spine tenderness Thoracic/Lumbar Spine: paraspinal muscle tenderness bilaterally in the upper thoracic and in the mid thoracic and thoracic spinal tenderness Skin Rashes: no rashes Extrem General: Yes no clubbing, cyanosis or edema Results Reviewed Results Reviewed: Laboratory Tests 09/12/23 09/12/23 09/12/23 09:23 09:29 09:29 WBC 5.6 Hgb 12.4 Hct 40.0 Plt Count 214 Sodium 140 Potassium 3.8 Creatinine 0.67 Estimated GFR > 60 Fasting Glucose 92 Calcium 9.7 AST 22 ALT 15 Alkaline Phosphatase 119 H Triglycerides 75 Cholesterol 181 LDL Cholesterol, Calc 94 HDL Cholesterol 72 25-OH Vitamin D Total 35.6 TSH 0.77 Ur Specific [place] 1.025 Urine Protein Negative Urine Glucose (UA) Negative Urine Blood Negative Assessment and Plan Assessment & Plan (1) Pure hypercholesterolemia: Code(s): E78.00 - Pure hypercholesterolemia, unspecified Plan: Results of her labs done last week reviewed and discussed with patient Reinforced low cholesterol diet Continue Atorvastatin 10 mg QD Will recheck her labs and fasting lipids in 4 months for follow up (2) Asthma: Code(s): J45.909 - Unspecified asthma, uncomplicated Qualifiers: Asthma severity: mild Asthma persistence: intermittent Asthma complication type: uncomplicated Qualified Code(s): J45.20 - Mild intermittent asthma, uncomplicated Plan: Stable/controlled Continue Albuterol HFA 2 inhalations Q 6 hours PRN (3) Allergic rhinitis: Code(s): J30.9 - Allergic rhinitis, unspecified Qualifiers: Allergic rhinitis trigger: pollen Allergic rhinitis seasonality: seasonal Qualified Code(s): J30.1 - Allergic rhinitis due to pollen Plan: Continue Cetirizine 10 mg QD PRN and Fluticasone 50 mcg nasal spray QD PRN (4) Bilateral groin pain: Code(s): R10.31 - Right lower quadrant pain; R10.32 - Left lower quadrant pain Plan: States that her previous groin pain have resolved Pelvic US done back in 2018 revealed no suspicious adnexal findings but there was an enlarging 4.1 cm myometrial mass in the posterior uterine body back then - possible fibroid Repeat pelvic US done in May 2023 revealed no concerning findings - the central myometrial fibroid is redemonstrated and appears stable and actually appears to have diminished in size from previous. The endometrial stripe is obscured by this fibroid. No adnexal mass or pelvic free fluid is noted She has been referred to gynecology a few months ago - to follow up with gynecology as scheduled (5) Bilateral pendulous breasts: Code(s): N64.89 - Other specified disorders of breast Plan: Per request, we referred her to plastic surgery for consideration for reduction mammoplasty as she feels that her breasts are too large for her size and are a prominent cause of her recurrent neck and upper back pains Insurance denied this previously and wants her to try conservative measures first She has been through physical therapy over the past couple of months - has had 6 sessions of treatment so far with NO significant improvement of her symptoms Will send her for x-rays of the cervical and thoracic spine for further evaluation to complete her work ups Will revisit option of breast reduction surgery and refer her back to plastic surgery (6) Obesity (BMI 30-39.9): Code(s): E66.9 - Obesity, unspecified Plan: Reinforced diet/exercise as tolerated/lose weight Plan Follow up in 4 months Orders: Orders XR cervical spine 3V Today M54.2 - Cervicalgia XR thoracic spine 3V Today M54.9 - Dorsalgia, unspecified Comprehensive [place]. Panel Fast 4 Months E78.00 - Pure hypercholesterolemia, unspecified Lipid Panel 4 Months E78.00 - Pure hypercholesterolemia, unspecified Referrals Plastic Surgery Referral M54.2 - Cervicalgia, M54.9 - Dorsalgia, unspecified, N64.89 - Other specified disorders of breast Coding Level of Care Code Est Pt Level 4 (86007) Diagnoses Pure hypercholesterolemia E78.00 Mild intermittent asthma without complication J45.20 Asthma severity: mild Asthma persistence: intermittent Asthma complication type: uncomplicated Seasonal allergic rhinitis due to pollen J30.1 Allergic rhinitis trigger: pollen Allergic rhinitis seasonality: seasonal Bilateral groin pain R10.31; R10.32 Bilateral pendulous breasts N64.89 Obesity (BMI 30-39.9) E66.9
== END 2023-09-18 10:42 | disposition home or self-care (01) ==
PROVIDERS: PCP Internal Medicine; Visit Provider Internal Medicine
DX: E78.00 Pure hypercholesterolemia, unspecified (principal); E66.9 Obesity, unspecified; Z68.30 Body mass index [BMI] 30.0-30.9, adult; J45.20 Mild intermittent asthma, uncomplicated; J30.1 Allergic rhinitis due to pollen; R10.31 Right lower quadrant pain; R10.32 Left lower quadrant pain; N64.89 Other specified disorders of breast
CPT/HCPCS: 99214

== ENCOUNTER 2023-11-11 09:28 | Outpatient (REF) | payer OTHER, SELFPAY ==
--- NOTE | ~2023-11-11 | XR_ITS ---
EXAMINATION: XR CERVICAL SPINE XR THORACIC SPINE CLINICAL INFORMATION: Back pain, neck pain. COMPARISON: Chest radiographs of 08/05/2017 and 12/08/2018. TECHNIQUE: 6 views of the cervical spine. 2 views of the thoracic spine. FINDINGS: THORACIC SPINE: Slight rightward curvature at the mid to lower thoracic spine. Moderate multilevel degenerative changes in the thoracic spine. Bones are diffusely demineralized. CERVICAL SPINE: Minimal retrolisthesis of C3 on C4. Minimal anterolisthesis of C4 on C5. Cervical spondylosis with moderate loss of disc space height and hypertrophic change at C5-C6. C7 vertebral body partially obscured by overlying bone and soft tissue structures. XR/XR thoracic spine 3V IMPRESSION: 1. Moderate multilevel degenerative changes in the thoracic spine. 2. Moderate degenerative changes at C5-C6.
--- NOTE | ~2023-11-11 | XR_ITS ---
EXAMINATION: XR CERVICAL SPINE XR THORACIC SPINE CLINICAL INFORMATION: Back pain, neck pain. COMPARISON: Chest radiographs of 08/05/2017 and 12/08/2018. TECHNIQUE: 6 views of the cervical spine. 2 views of the thoracic spine. FINDINGS: THORACIC SPINE: Slight rightward curvature at the mid to lower thoracic spine. Moderate multilevel degenerative changes in the thoracic spine. Bones are diffusely demineralized. CERVICAL SPINE: Minimal retrolisthesis of C3 on C4. Minimal anterolisthesis of C4 on C5. Cervical spondylosis with moderate loss of disc space height and hypertrophic change at C5-C6. C7 vertebral body partially obscured by overlying bone and soft tissue structures. XR/XR cervical spine 3V IMPRESSION: 1. Moderate multilevel degenerative changes in the thoracic spine. 2. Moderate degenerative changes at C5-C6.
== END 2023-11-11 09:29 | disposition home or self-care (01) ==
LOC: HO.XRAY 09:28
PROVIDERS: PCP Internal Medicine; Visit Provider Internal Medicine
DX: M54.2 Cervicalgia (principal); M54.9 Dorsalgia, unspecified
CPT/HCPCS: 72040; 72072

== ENCOUNTER 2023-12-19 09:17 | Outpatient (AMB) | payer OTHER, SELFPAY ==
--- NOTE | 2023-12-19 10:59 | AM.OFFWIN_ITS ---
Intake Vital Signs 12/19/23 11:06 Weight 149 lb BP 130/90 H Blood Pressure Location Lt brachial Position Sitting Pulse 78 Pulse Source Pulse Oximeter Temp 98.2 F Temp Source Oral Pulse Oximetry (%) 98 Oxygen Delivery Method Room Air Intake Visit Reasons: EST/sore throat and ear pain ([phone]) Intake Note: Patient here for sore throat, cough and ear pain that has been present for about 5 days. Patient Tobacco Use Status: Never used Tobacco Allergies No Known Allergies Allergy (Verified 12/19/23 11:00) Do you need a note to return to daycare/school/sports/work: Yes HPI HPI Comments History of Present Illness Details 58 y/o female patient who presents to [facility] in clinic with c/o cough, sore-throat and right ear pain. Right ear pain started yesterday and other symptoms started 5 days ago. Denied fevers, chills, nausea or vomiting. No recent sick contcats. [facility] Medical History Obesity (BMI 30-39.9) Overweight (BMI 25.0-29.9) Asthma Pure hypercholesterolemia VICENTA (generalized anxiety disorder) Insomnia Allergic rhinitis Obese Ingrown toenail Dyslipidemia Mild asthma Surgical History History of hysteroscopy History of eye surgery History of tubal ligation Family History Father Liver problem Alcoholism Substance use disorder Mother Hypertension Maternal Grandmother Heart disease Maternal Grandfather No problems noted. Paternal Grandfather Throat cancer Social History Housing: Apartment Alcohol intake: current Alcohol intake frequency: holidays/special occasions only Patient Tobacco Use Status: Never used Tobacco e-Cigarette/Vaping Use: Never Used Second Hand Smoke Exposure: No service: No Current occupational status: unemployed Cognitive needs: No Hearing needs: No Vision needs: No Review of Systems Const All systems reviewed & are unremarkable except as noted in HPI and below Physical Exam Vital Signs: Last Vital Signs Temp 98.2 F 12/19/23 11:06 Pulse 78 12/19/23 11:06 BP 130/90 H 12/19/23 11:06 Pulse Ox 98 12/19/23 11:06 Oxygen Delivery Method Room Air 12/19/23 11:06 Const General: comfortable and no acute distress Nutritional Appearance: obese HEENT Head: Yes normocephalic Ears: external ears normal, TM normal on the left and TM abnormal bulging on the right, wth effusion serosanguinous, erythematous on the right, with fluid behind the TM on the right and retracted General nose exam: Normal nares present Face and sinus: Yes sinuses nontender Mouth: moist mucous membranes Resp Effort & Inspection: normal respiratory effort and able to speak in complete sentences Auscultation: clear to auscultation bilaterally, no crackles, no rales, no rhonchi and no wheezes Cardio Rate: regular rate Rhythm: regular rhythm Results AMB Rapid Strep AMB Rapid Strep Negative Last Edit by Aaron Kimball on 12/19/23 11:24 Results Reviewed Results Reviewed: Laboratory Last Values Strep Scn Rapid Clinic Negative 12/19/23 11:23 Assessment & Plan Assessment & Plan (1) Otitis media: Code(s): H66.90 - Otitis media, unspecified, unspecified ear Qualifiers: Chronicity: acute Laterality: right Otitis media type: suppurative Recurrence: not specified as recurrent Spontaneous tympanic membrane rupture: without spontaneous rupture Qualified Code(s): H66.001 - Acute suppurative otitis media without spontaneous rupture of ear drum, right ear Plan: - Take Abx as directed - Acetaminophen for pain relief. (2) Acute pharyngitis: Code(s): J02.9 - Acute pharyngitis, unspecified Qualifiers: Pharyngitis/tonsillitis etiology: unspecified etiology Qualified Code(s): J02.9 - Acute pharyngitis, unspecified Plan: - Warm fluids with honey - OTC cold remedies (3) Cough in adult: Code(s): R05.9 - Cough, unspecified Plan: - OTC cough/cold remedies. Orders: Orders SARS-CoV2/FLU/RSV Today J02.9 - Acute pharyngitis, unspecified, R05.9 - Cough, unspecified Medications: New amoxicillin-pot clavulanate 875-125 mg 1 tab PO BID 10 days 20 tabs 0RF H66.001 - Acute suppurative otitis media without spontaneous rupture of ear drum, right ear acetaminophen 1,000 mg (2 x 500 mg) PO Q6H PRN 60 caps 0RF pain H66.001 - Acute suppurative otitis media without spontaneous rupture of ear drum, right ear, J02.9 - Acute pharyngitis, unspecified benzonatate 100 mg PO TID 90 caps 0RF R05.9 - Cough, unspecified Coding Level of Care Code Est Pt Level 3 (79420) Diagnoses Acute suppurative otitis media of right ear without spontaneous rupture of tympanic membrane, recurrence not specified H66.001 Chronicity: acute Laterality: right Otitis media type: suppurative Recurrence: not specified as recurrent Spontaneous tympanic membrane rupture: without spontaneous rupture Acute pharyngitis, unspecified etiology J02.9 Pharyngitis/tonsillitis etiology: unspecified etiology Cough in adult R05.9 Time Spent (min) 15
[2023-12-19 11:06] VITALS: BP 130/90; PULSE 78; TEMP 36.8; O2SAT 98
== END 2023-12-19 11:55 | disposition home or self-care (01) ==
PROVIDERS: PCP Internal Medicine; Visit Provider Nurse Practitioner Family
DX: H66.001 Acute suppurative otitis media without spontaneous rupture of ear drum, right ear (principal); J02.9 Acute pharyngitis, unspecified; R05.9 Cough, unspecified
CPT/HCPCS: 87880; 99213

== ENCOUNTER 2023-12-19 11:36 | Outpatient (REF) | payer OTHER, SELFPAY ==
[2023-12-19 14:08] LABS: Influenza A PCR NEGATIVE (Negative); Influenza B PCR NEGATIVE (Negative); Resp Syncy Virus RNA Qual PCR NEGATIVE (Negative); SARS COV2 PCR INHOUSE NEGATIVE (Negative)
== END 2023-12-19 11:37 | disposition home or self-care (01) ==
LOC: HO.LAB 11:36
PROVIDERS: Visit Provider Nurse Practitioner Family
DX: Z11.52 Encounter for screening for COVID-19 (principal); Z20.822 Contact with and (suspected) exposure to COVID-19; J02.9 Acute pharyngitis, unspecified; R05.9 Cough, unspecified
CPT/HCPCS: 0241U

== ENCOUNTER 2024-01-01 10:41 | Outpatient (REF) | payer OTHER, SELFPAY | END 2024-01-01 10:42 | disposition home or self-care (01) | LOC: HO.MAMMO 10:41 | PROVIDERS: PCP Internal Medicine; Visit Provider Internal Medicine | DX: Z12.31 Encounter for screening mammogram for malignant neoplasm of breast (principal) | CPT/HCPCS: 77063; 77067 ==

== ENCOUNTER → 2024-01-01 11:00 | Outpatient (BNV) | payer OTHER, SELFPAY | PROVIDERS: PCP Internal Medicine; Visit Provider Radiology Diagnostic Radiology | DX: Z12.31 Encounter for screening mammogram for malignant neoplasm of breast (principal) | CPT/HCPCS: 77063; 77067 ==

== ENCOUNTER 2024-01-24 09:05 | Outpatient (REF) | payer OTHER, SELFPAY ==
[2024-01-24 12:07] LABS: Alanine Aminotransferase 19 U/L (0-31); Albumin Level 4.3 g/dL (3.5-5.0); Alkaline Phosphatase 118 U/L (39-117); Anion Gap 14 (12-20); Aspartate Amino Transferase 22 U/L (5-31); Bilirubin Total 0.5 mg/dL (0.0-1.0); Blood Urea Nitrogen 18 mg/dL (9-16); Calcium 9.7 mg/dL (8.4-10.2); Carbon Dioxide 27 mmol/L (22-29); Chloride 108 mmol/L (96-108); Cholesterol 169 mg/dL (<200); Estimated Glomerular Filt Rate > 60; Glucose Fasting 85 mg/dL (60-99); HDL Cholesterol 71 mg/dL (>40); LDL Cholesterol Calculated 86 mg/dL (<100); Potassium 3.9 mmol/L (3.3-5.1); Sodium 145 mmol/L (135-145); Total Protein 7.4 g/dL (6.5-8.0); Triglycerides 62 mg/dL (<150)
== END 2024-01-24 09:06 | disposition home or self-care (01) ==
LOC: HO.LAB 09:05
PROVIDERS: PCP Internal Medicine; Visit Provider Internal Medicine
DX: E78.00 Pure hypercholesterolemia, unspecified (principal)
CPT/HCPCS: 36415; 80053; 80061

== ENCOUNTER 2024-01-28 10:35 | Outpatient (AMB) | payer OTHER, SELFPAY ==
--- NOTE | 2024-01-28 10:37 | A.OFFPC_ITS ---
Vital Signs 01/28/24 10:39 Height 4 ft 10 in Weight 148 lb 2 oz BMI 31.0 BP 124/78 Blood Pressure Location Lt brachial Position Sitting Pulse 76 Pulse Source Pulse Oximeter Pulse Oximetry (%) 98 Oxygen Delivery Method Room Air Intake Visit Reasons: hyperlipidemia, asthma, back pain/neck pain Intake Note: Patient is here to follow up on Hyperlipdemia, Asthma, Back and Neck pain . Point Of Sale Associate Required: No Mechanical Apprentice: Not Required per policy Accompanied by: Self / Same As Patient Allergies No Known Allergies Allergy (Verified 01/28/24 10:57) Medication List - Last Reconciled 01/28/24 by Chente Bill MD acetaminophen 1,000 mg (2 x 500 mg) PO Q6H PRN atorvastatin 10 mg PO DAILY 90 days cetirizine (All Day Allergy (cetirizine)) 10 mg PO DAILY PRN 90 days fluticasone propionate 50 mcg/actuation 2 sprays intranasal DAILY 30 days Ventolin HFA 90 mcg/actuation (albuterol sulfate) 2 puffs inhalation Q6H PRN 30 days NS Tobacco use date assessed: 01/28/24 Dental Screening Dental Screen Date: 01/28/24 Did you have a dental visit in the last 12 months?: Yes Did you have a dental problem in the last 6 months where you did not have access to dental care?: No Was dental information given to patient?: Patient has dentist HPI hyperlipidemia, asthma, back pain/neck pain HPI Details Patient comes in today for her follow up visit States that she feels okay She denies any headaches or dizziness Denies any chest pains, no SOB No nausea/vomiting, no abdominal pain No change in bowel habits noted Needs her Fluticasone nasal spray Rx refilled States that she is scheduled for breast reduction surgery at [facility] on 04/02/2024 Had her follow up labs done a few days ago - to discuss her results [facility] Medical History Obesity (BMI 30-39.9) Overweight (BMI 25.0-29.9) Asthma Pure hypercholesterolemia VICENTA (generalized anxiety disorder) Insomnia Allergic rhinitis Obese Ingrown toenail Dyslipidemia Mild asthma Surgical History History of hysteroscopy History of eye surgery History of tubal ligation Family History Father Liver problem Alcoholism Substance use disorder Mother Hypertension Maternal Grandmother Heart disease Maternal Grandfather No problems noted. Paternal Grandfather Throat cancer Social History Housing: Apartment Alcohol intake: current Alcohol intake frequency: holidays/special occasions only Patient Tobacco Use Status: Never used Tobacco e-Cigarette/Vaping Use: Never Used Second Hand Smoke Exposure: No service: No Current occupational status: unemployed Cognitive needs: No Hearing needs: No Vision needs: No Questionnaire PHQ-9 Over the last 2 weeks, how often have you been bothered by any of the following problems? 1. Little interest or pleasure in doing things: not at all 2. Feeling down, depressed, or hopeless: not at all 3. Trouble falling or staying asleep, or sleeping too much: not at all 4. Feeling tired or having little energy: not at all 5. Poor appetite or overeating: not at all 6. Feeling bad about yourself - or that you are a failure or have let yourself or your family down: not at all 7. Trouble concentrating on things, such as reading the newspaper or watching television: not at all 8. Moving or speaking so slowly that other people could have noticed. Or the opposite - being so fidgety or restless that you have been moving around a lot more than usual: not at all 9. Thoughts that you would be better off or of hurting yourself in some wa y: not at all Total score: 0 Depression Screening Interpretation: Negative Depression Screening Done: Yes 84265 - PHQ-9 Billing: Yes Source: Developed by Drs. Willem El, Violeta Kwon, Khai Lopez and colleagues, with an educational alex from [employer]. Thrive Questionnaire Date Thrive assessed: 01/28/24 I am a: Patient What is your living situation today?: I have a steady place to live Within the past 12 months, did the food you bought not last and you didn't have the money to get more?: Never true Within the past 12 months, did you worry whether your food would run out before you got money to buy more?: Never true Do you have trouble paying for medicines?: No Do you have trouble getting transportation to medical appointments?: No Do you have trouble paying your heating and electricity bill?: No Do you have trouble taking care of your child, family member or friend?: No Do you have trouble with day-to-day activities such as bathing, preparing meals, shopping, managing finances, etc.?: No Are you currently unemployed and looking for a job?: No Are you interested in more education?: No Currently or been in a relationship where the following occur: no concerns reported THRIVE Score: 0 AUDIT C Alcohol Use Questionnaire (AUDIT-C) 1. How often do you have a drink containing alcohol?: Monthly or less 2. How many drinks containing alcohol do you have on a typical day when you are drinking?: 1 or 2 3. How often do you have six or more drinks on one occasion?: Never Total Score: 1 Score Reviewed/Action Taken: Yes VICENTA-7 AMB Questionnaire VICENTA-7 Date VICENTA - 7 assessed: 01/28/24 Feeling nervous, anxious, or on edge: 0 = Not at all Not being able to stop or control worryin = Not at all Worrying too much about different things: 0 = Not at all Trouble relaxin = Not at all Being so restless that it is hard to sit still: 0 = Not at all Becoming easily annoyed or irritable: 0 = Not at all Feeling afraid as if something awful might happen: 0 = Not at all Total VICENTA-7 score (0-4 normal; 5-9 mild; 10-14 moderate; 15-21 severe): 0 Source: Developed by Drs. Willem El, Violeta Kwon, Khai Lopez and colleagues, with an educational alex from [employer]. Review of Systems Const Denies chills, Denies fatigue, Denies fever(s) and Denies headache(s) ENT Denies dysphagia, Denies dizziness, Denies otalgia, Denies headache(s), Denies nasal congestion, Reports neck pain (recurrent/frequent), Denies odynophagia and Denies sore throat Card Denies chest pain, Denies palpitations and Denies dyspnea Resp Denies cough and Denies dyspnea GI Denies abdominal pain, Denies constipation, Denies dysphagia, Denies heartburn, Denies diarrhea, Denies nausea, Denies odynophagia and Denies vomiting Denies difficulty voiding, Denies nocturia, Denies dysuria and Denies urinary urgency Musc Reports back pain (chronic pain over her upper back bilaterally) and Reports neck pain (recurrent/frequent) Skin/Breast Denies rash Neuro Denies dizziness and Denies headache(s) Endo Denies fatigue and Denies palpitations Physical exam (Primary Care) Vital Signs: Last Vital Signs Pulse 76 01/28/24 10:39 BP 124/78 01/28/24 10:39 Pulse Ox 98 01/28/24 10:39 Oxygen Delivery Method Room Air 01/28/24 10:39 BMI result Body Mass Index 31.0 Tobacco/Smoking Status: Tobacco use Status Tobacco use date assessed 01/28/24 01/28/24 10:43 Patient Tobacco Use Status Never used Tobacco 01/28/24 10:43 e-Cigarette/Vaping Use Never Used 01/28/24 10:43 PHQ-9: PHQ-9 Score PHQ-9: Total score 0 01/28/24 11:00 Depression Screening Interpretation: Negative Thrive Assessment: Date of Thrive Assessment Date Thrive assessed 01/28/24 01/28/24 10:43 Currently or been in a relationship where the following occur: no concerns reported Const General: no acute distress and alert HENMT Ears: TM's normal bilaterally and EAC's normal Throat: Yes posterior oropharynx normal and Yes tonsils normal (no TP congestion) Neck Neck: Yes no lymphadenopathy and Yes supple Thyroid: Thyroid normal Resp Auscultation: clear to auscultation bilaterally, no rales and no wheezes Cardio Rate: regular rate Rhythm: regular rhythm Heart sounds: no murmurs GI Palpation (GI): Soft to palpation and nontender Auscultation: normal bowel sounds General: Yes no CVA tenderness Back/Spine/Pelvis Back: no CVA tenderness Cervical Spine: cervical muscular tenderness (bilateral) and Cervical spine tenderness Thoracic/Lumbar Spine: paraspinal muscle tenderness bilaterally in the upper thoracic and in the mid thoracic and thoracic spinal tenderness Skin Rashes: no rashes Extrem General: Yes no clubbing, cyanosis or edema Results Reviewed Results Reviewed: Laboratory Tests 01/24/24 09:25 Sodium 145 Potassium 3.9 Creatinine 0.72 Estimated GFR > 60 Fasting Glucose 85 Calcium 9.7 AST 22 ALT 19 Triglycerides 62 Cholesterol 169 LDL Cholesterol, Calc 86 HDL Cholesterol 71 Assessment and Plan Assessment & Plan (1) Pure hypercholesterolemia: Code(s): E78.00 - Pure hypercholesterolemia, unspecified Plan: Results of her labs done a few days ago reviewed and discussed with patient Reinforced low cholesterol diet Continue Atorvastatin 10 mg QD Will recheck her labs and fasting lipids in 4 months for follow up (2) Asthma: Code(s): J45.909 - Unspecified asthma, uncomplicated Qualifiers: Asthma complication type: uncomplicated Asthma persistence: intermittent Asthma severity: mild Qualified Code(s): J45.20 - Mild intermittent asthma, uncomplicated Plan: Stable/controlled Continue Albuterol HFA 2 inhalations Q 6 hours PRN (3) Allergic rhinitis: Code(s): J30.9 - Allergic rhinitis, unspecified Qualifiers: Allergic rhinitis seasonality: seasonal Allergic rhinitis trigger: pollen Qualified Code(s): J30.1 - Allergic rhinitis due to pollen Plan: Continue Cetirizine 10 mg QD PRN and Fluticasone 50 mcg nasal spray QD PRN (Rx refilled) (4) Bilateral pendulous breasts: Code(s): N64.89 - Other specified disorders of breast Plan: She was previously referred to plastic surgery for consideration for reduction mammoplasty as she feels that her breasts are too large for her size and are a significant cause of her recurrent neck and upper back pains She has been through physical therapy over the past year - has had 6 sessions of treatment so far with NO significant improvement of her symptoms States that she has been seen a few weeks ago and is now scheduled for breast reduction surgery at [facility] on 04/02/2024 X-rays of the cervical and thoracic spine done a few months ago revealed (+) mild to moderate cervical and thoracic spondylosis and degenerative disc changes (5) Obesity (BMI 30-39.9): Code(s): E66.9 - Obesity, unspecified Plan: Reinforced diet/exercise as tolerated/lose weight Plan Follow up in 4 months Orders: Orders Complete Blood Count Auto Diff 4 Months D64.9 - Anemia, unspecified Lipid Panel 4 Months E78.00 - Pure hypercholesterolemia, unspecified Comprehensive [place]. Panel Fast 4 Months E78.00 - Pure hypercholesterolemia, unspecified Vitamin D 25-OH Total 4 Months E55.9 - Vitamin D deficiency, unspecified UA CC w/rflx Micro + Cult 4 Months R30.0 - Dysuria TSH reflex Free T4 4 Months E78.00 - Pure hypercholesterolemia, unspecified Medications: Refilled fluticasone propionate 50 mcg/actuation 2 sprays intranasal DAILY 16 grams 5RF 30 days Coding Level of Care Code Est Pt Level 4 (12488) Diagnoses Pure hypercholesterolemia E78.00 Mild intermittent asthma without complication J45.20 Asthma complication type: uncomplicated Asthma persistence: intermittent Asthma severity: mild Seasonal allergic rhinitis due to pollen J30.1 Allergic rhinitis seasonality: seasonal Allergic rhinitis trigger: pollen Bilateral pendulous breasts N64.89 Obesity (BMI 30-39.9) E66.9
[2024-01-28 10:39] VITALS: BP 124/78; PULSE 76; O2SAT 98; BMI 31.0
== END 2024-01-28 11:10 | disposition home or self-care (01) ==
PROVIDERS: PCP Internal Medicine; Visit Provider Internal Medicine
DX: E78.00 Pure hypercholesterolemia, unspecified (principal); J45.20 Mild intermittent asthma, uncomplicated; E66.9 Obesity, unspecified; Z68.31 Body mass index [BMI] 31.0-31.9, adult
CPT/HCPCS: 99214

== ENCOUNTER 2024-03-19 11:19 | Outpatient (AMB) | payer OTHER, SELFPAY ==
[2024-03-19 11:22] VITALS: BP 134/86; PULSE 72; O2SAT 98; BMI 31.6
--- NOTE | 2024-03-19 11:22 | A.OFFPC_ITS ---
Vital Signs 03/19/24 11:22 Height 4 ft 10 in Weight 151 lb 0.4 oz BMI 31.6 BP 134/86 Blood Pressure Location Lt brachial Position Sitting Pulse 72 Pulse Source Pulse Oximeter Pulse Oximetry (%) 98 Oxygen Delivery Method Room Air Intake Visit Reasons: [facility] Breast reduction 04/02 Intake Note: Patient is here for a Pre-op for Breast Reduction scheduled with Dr. Trent Martin on 04/02/2024. 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: No Allergies No Known Allergies Allergy (Verified 03/27/24 09:07) Medication List - Last Reconciled 03/27/24 by Chente Bill MD acetaminophen 1,000 mg (2 x 500 mg) PO Q6H PRN atorvastatin 10 mg PO DAILY 90 days cetirizine (All Day Allergy (cetirizine)) 10 mg PO DAILY PRN 90 days fluticasone propionate 50 mcg/actuation 2 sprays intranasal DAILY 30 days Ventolin HFA 90 mcg/actuation (albuterol sulfate) 2 puffs inhalation Q6H PRN 30 days NS Tobacco use date assessed: 03/19/24 Dental Screening Dental Screen Date: 01/28/24 HPI [facility] Breast reduction 04/02 HPI Details Patient comes in today at the request of Dr. Tony Luciano for a preoperative medical examination for clearance for surgery She is scheduled for bilateral breast reduction surgery under general anesthesia on 04/02/2024 at [facility] in [place] to try to help relieve her chronic back pains Patient states that she currently feels okay and has no significant cardiac or pulmonary history She denies any headaches or dizziness Denies any chest pains, no SOB No nausea/vomiting, no abdominal pain No change in bowel habits noted She had some routine labs done a couple of months ago and there were no significant abnormalities or issues with any of her lab results [facility] Medical History (Updated 03/27/24 @ 09:14 by Chente Bill MD) Obesity (BMI 30-39.9) Asthma Pure hypercholesterolemia VICENTA (generalized anxiety disorder) Insomnia Allergic rhinitis Surgical History History of hysteroscopy History of eye surgery History of tubal ligation Family History Father Liver problem Alcoholism Substance use disorder Mother Hypertension Maternal Grandmother Heart disease Maternal Grandfather No problems noted. Paternal Grandfather Throat cancer Social History Housing: Apartment Alcohol intake: current Alcohol intake frequency: holidays/special occasions only Patient Tobacco Use Status: Never used Tobacco e-Cigarette/Vaping Use: Never Used Second Hand Smoke Exposure: No service: No Current occupational status: unemployed Cognitive needs: No Hearing needs: No Vision needs: No Questionnaire Thrive Questionnaire Date Thrive assessed: 01/28/24 AUDIT C Alcohol Use Questionnaire (AUDIT-C) 1. How often do you have a drink containing alcohol?: Monthly or less 2. How many drinks containing alcohol do you have on a typical day when you are drinking?: 1 or 2 3. How often do you have six or more drinks on one occasion?: Never Total Score: 1 Score Reviewed/Action Taken: Yes VICENTA-7 AMB Questionnaire VICENTA-7 Date VICENTA - 7 assessed: 01/28/24 Source: Developed by Drs. Willem El, Violeta Kwon, Khai Lopez and colleagues, with an educational alex from [employer]. Review of Systems Const Denies chills, Denies fatigue, Denies fever(s) and Denies headache(s) ENT Denies dysphagia, Denies dizziness, Denies otalgia, Denies headache(s), Denies nasal congestion, Reports neck pain (recurrent/frequent), Denies odynophagia and Denies sore throat Card Denies chest pain, Denies palpitations and Denies dyspnea Resp Denies cough, Denies dyspnea and Denies wheezing GI Denies abdominal pain, Denies constipation, Denies dysphagia, Denies heartburn, Denies diarrhea, Denies nausea, Denies odynophagia and Denies vomiting Denies difficulty voiding, Denies nocturia, Denies dysuria and Denies urinary u rgency Musc Reports back pain (chronic pain over her upper back bilaterally) and Reports neck pain (recurrent/frequent) Skin/Breast Denies rash Neuro Denies dizziness and Denies headache(s) Endo Denies fatigue and Denies palpitations Aller/Immun Denies wheezing Physical exam (Primary Care) Vital Signs: Last Vital Signs Pulse 72 03/19/24 11:22 BP 134/86 03/19/24 11:22 Pulse Ox 98 03/19/24 11:22 Oxygen Delivery Method Room Air 03/19/24 11:22 BMI result Body Mass Index 31.6 Tobacco/Smoking Status: Tobacco use Status Tobacco use date assessed 03/19/24 03/19/24 11:27 Patient Tobacco Use Status Never used Tobacco 03/19/24 11:27 e-Cigarette/Vaping Use Never Used 03/19/24 11:27 Thrive Assessment: Date of Thrive Assessment Date Thrive assessed 01/28/24 03/19/24 11:27 Const General: no acute distress and alert HENMT Ears: TM's normal bilaterally and EAC's normal Throat: Yes posterior oropharynx normal and Yes tonsils normal (no TP congestion) Neck Neck: Yes no lymphadenopathy and Yes supple Thyroid: Thyroid normal Resp Auscultation: clear to auscultation bilaterally, no rales and no wheezes Cardio Rate: regular rate Rhythm: regular rhythm Heart sounds: no murmurs GI Palpation (GI): Soft to palpation and nontender Auscultation: normal bowel sounds General: Yes no CVA tenderness Back/Spine/Pelvis Back: no CVA tenderness Cervical Spine: cervical muscular tenderness (bilateral) and Cervical spine tenderness Thoracic/Lumbar Spine: paraspinal muscle tenderness bilaterally in the upper thoracic and in the mid thoracic and thoracic spinal tenderness Skin Rashes: no rashes Extrem General: Yes no clubbing, cyanosis or edema Results Reviewed Results Reviewed: Laboratory Tests 09/12/23 01/24/24 09:29 09:25 Hgb 12.4 Hct 40.0 Sodium 145 Potassium 3.9 Creatinine 0.72 Estimated GFR > 60 Fasting Glucose 85 Calcium 9.7 AST 22 ALT 19 TSH 0.77 Assessment and Plan Assessment & Plan (1) Preoperative examination: Code(s): Z01.818 - Encounter for other preprocedural examination Plan: Patient presents with acceptable risks for planned intermediate cardiac risk procedure Results of her labs done a couple of months ago reviewed - labs are within normal range and these are attached above for review as necessary She had an EKG done a few years ago on 12/08/2018 that came out completely normal (2) Bilateral pendulous breasts: Code(s): N64.89 - Other specified disorders of breast Plan: Patient is scheduled to undergo reduction mammoplasty of both breasts under general anesthesia with Dr. Jimenez Prior in a couple of weeks on 04/02/2024 at [facility] to hopefully help alleviate/relieve her recurrent neck and back pains, which she has been experiencing for years (3) Asthma: Code(s): J45.909 - Unspecified asthma, uncomplicated Qualifiers: Asthma severity: mild Asthma persistence: intermittent Asthma complication type: uncomplicated Qualified Code(s): J45.20 - Mild intermittent asthma, uncomplicated Plan: Stable/controlled Continue Albuterol HFA 1 to 2 inhalations every 6 hours PRN (4) Pure hypercholesterolemia: Code(s): E78.00 - Pure hypercholesterolemia, unspecified Plan: Reinforced low cholesterol diet Continue Atorvastatin 10 mg QD (5) Allergic rhinitis: Code(s): J30.9 - Allergic rhinitis, unspecified Qualifiers: Allergic rhinitis trigger: pollen Allergic rhinitis seasonality: seasonal Qualified Code(s): J30.1 - Allergic rhinitis due to pollen Plan: Continue Cetirizine 10 mg QD PRN and Fluticasone 50 mcg nasal spray QD PRN (6) Obesity (BMI 30-39.9): Code(s): E66.9 - Obesity, unspecified Plan: Reinforced diet/exercise as tolerated/lose weight Plan Patient is currently medically optimized and has no contraindications to undergo bilateral breast reduction surgery with Dr. Jimenez Prior as scheduled on 04/02/2024 Follow up as scheduled in May 2024 Coding Level of Care Code Est Pt Level 3 (80923) Diagnoses Preoperative examination Z01.818 Bilateral pendulous breasts N64.89 Mild intermittent asthma without complication J45.20 Asthma severity: mild Asthma persistence: intermittent Asthma complication type: uncomplicated Pure hypercholesterolemia E78.00 Seasonal allergic rhinitis due to pollen J30.1 Allergic rhinitis trigger: pollen Allergic rhinitis seasonality: seasonal Obesity (BMI 30-39.9) E66.9
== END 2024-03-19 12:18 | disposition home or self-care (01) ==
PROVIDERS: PCP Internal Medicine; Visit Provider Internal Medicine
DX: J45.20 Mild intermittent asthma, uncomplicated (principal); E66.9 Obesity, unspecified; Z68.31 Body mass index [BMI] 31.0-31.9, adult; Z01.818 Encounter for other preprocedural examination; N64.89 Other specified disorders of breast; E78.00 Pure hypercholesterolemia, unspecified; J30.1 Allergic rhinitis due to pollen
CPT/HCPCS: 99213

== ENCOUNTER 2024-06-04 09:39 | Outpatient (REF) | payer OTHER, SELFPAY ==
[2024-06-04 09:57] LABS: MANUAL DIFF FLAG NO
[2024-06-04 10:45] LABS: Appearance Urine Clear; Color Urine Yellow; Glucose Urine UA Negative (Negative); Leukocyte Esterase Urine Moderate (2+) (Negative); Nitrite Urine Negative (Negative); UMIC TRIGGER UACC YES; Urine Blood Negative (Negative); Urine Ketones Negative (Negative); Urine Protein Negative (Neg-Trace)
[2024-06-04 10:50] LABS: Basophils Percent Auto 0.4 % (0-2); Eosinophils Absolute Auto 0.1 X10*3/uL (0.0-0.4); Eosinophils Percent Auto 2.5 % (0-4); Hematocrit 38.9 % (37.0-47.0); Hemoglobin 12.6 g/dl (12.0-16.0); Imm Gran Abs Auto 0.02 X10*3/uL (0.00-0.03); Imm Gran Pct Auto 0.4 % (0.0-0.4); Lymphocytes Absolute Auto 1.3 X10*3/uL (1.2-4.9); Lymphocytes Percent Auto 24.6 % (20-40); Mean Corpuscular HGB Conc 32.4 g/dl (31.0-35.0); Mean Corpuscular Hemoglobin 26.8 pg (27.0-33.0); Mean Corpuscular Volume 82.6 fL (80.0-98.0); Mean Platelet Volume 11.9 fL (9.4-12.3); Monocytes Absolute Auto 0.4 X10*3/uL (0.1-1.2); Monocytes Percent Auto 7.5 % (2-11); Neutrophils Absolute Auto 3.4 x10*3/uL (2.0-8.3); Neutrophils Percent Auto 64.6 % (45-73); Platelet Count 198 X10*3/uL (160-400); Red Blood Count 4.71 X10*6/uL (4.20-5.50); Red Cell Distribution Width 13.9 % (11.0-16.0); White Blood Count 5.2 X10*3/uL (4.8-10.8)
[2024-06-04 10:53] LABS: Bacteria Urine None Seen (None Seen); Hyaline Casts Urine 0-2 /LPF (0-2); RBC Urine 0-2 /HPF (0-2); WBC Urine 0-5 /HPF (0-5)
[2024-06-04 11:29] LABS: Alanine Aminotransferase 14 U/L (0-31); Albumin Level 4.3 g/dL (3.5-5.0); Alkaline Phosphatase 111 U/L (39-117); Anion Gap 12 (12-20); Aspartate Amino Transferase 22 U/L (5-31); Bilirubin Total 0.6 mg/dL (0.0-1.0); Blood Urea Nitrogen 19 mg/dL (9-16); Calcium 9.9 mg/dL (8.4-10.2); Carbon Dioxide 27 mmol/L (22-29); Chloride 108 mmol/L (96-108); Cholesterol 153 mg/dL (<200); Estimated Glomerular Filt Rate > 60; Glucose Fasting 94 mg/dL (60-99); HDL Cholesterol 58 mg/dL (>40); LDL Cholesterol Calculated 79 mg/dL (<100); Potassium 3.9 mmol/L (3.3-5.1); Sodium 143 mmol/L (135-145); Total Protein 7.2 g/dL (6.5-8.0); Triglycerides 84 mg/dL (<150)
[2024-06-04 11:45] LABS: TSH reflex Free T4 1.96 uIU/mL (0.32-4.0); Vitamin D 25-OH Total 40.7 ng/mL (>30)
== END 2024-06-04 09:40 | disposition home or self-care (01) ==
LOC: HO.LAB 09:39
PROVIDERS: PCP Internal Medicine; Visit Provider Internal Medicine
DX: E78.00 Pure hypercholesterolemia, unspecified (principal); D64.9 Anemia, unspecified; E55.9 Vitamin D deficiency, unspecified
CPT/HCPCS: 36415; 80053; 80061; 81001; 82306; 84443; 85025

== ENCOUNTER 2024-06-11 10:39 | Outpatient (AMB) | payer OTHER, SELFPAY ==
[2024-06-11 10:43] VITALS: BP 124/82; PULSE 71; O2SAT 97; BMI 30.3
--- NOTE | 2024-06-11 10:43 | A.OFFPC_ITS ---
Vital Signs 06/11/24 10:43 Height 4 ft 10 in Weight 145 lb BMI 30.3 BP 124/82 Blood Pressure Location Lt brachial Position Sitting Pulse 71 Pulse Source Pulse Oximeter Pulse Oximetry (%) 97 Oxygen Delivery Method Room Air Intake Visit Reasons: [facility] f/u Pillowcase Turner Required: No Accompanied by: Self / Same As Patient Allergies No Known Allergies Allergy (Verified 06/11/24 11:29) Medication List - Last Reconciled 06/11/24 by Chente Bill MD acetaminophen 1,000 mg (2 x 500 mg) PO Q6H PRN atorvastatin 10 mg PO DAILY 90 days cetirizine (All Day Allergy (cetirizine)) 10 mg PO DAILY PRN 90 days fluticasone propionate 50 mcg/actuation 2 sprays intranasal DAILY 30 days Ventolin HFA 90 mcg/actuation (albuterol sulfate) 2 puffs inhalation Q6H PRN 30 days NS Tobacco use date assessed: 06/11/24 Dental Screening Dental Screen Date: 06/11/24 Did you have a dental visit in the last 12 months?: No Did you have a dental problem in the last 6 months where you did not have access to dental care?: No Was dental information given to patient?: No HPI [facility] f/u HPI Details Patient comes in today for her follow up visit States that she currently feels okay She underwent bilateral reduction mammoplasty with Dr. Jimenez Prior successfully a couple of months ago on 04/02/2024 at [facility] - states that her back pain has improved a lot since She denies any headaches or dizziness Denies any chest pains, no SOB No nausea/vomiting, no abdominal pain No change in bowel habits noted She had her follow up labs done last week - to discuss her results [facility] Medical History Obesity (BMI 30-39.9) Asthma Pure hypercholesterolemia VICENTA (generalized anxiety disorder) Insomnia Allergic rhinitis Surgical History History of hysteroscopy History of eye surgery History of tubal ligation Family History Father Liver problem Alcoholism Substance use disorder Mother Hypertension Maternal Grandmother Heart disease Maternal Grandfather No problems noted. Paternal Grandfather Throat cancer Social History Housing: Apartment Alcohol intake: current Alcohol intake frequency: holidays/special occasions only Patient Tobacco Use Status: Never used Tobacco e-Cigarette/Vaping Use: Never Used Second Hand Smoke Exposure: No service: No Current occupational status: unemployed Cognitive needs: No Hearing needs: No Vision needs: No Questionnaire PHQ-9 Over the last 2 weeks, how often have you been bothered by any of the following problems? 1. Little interest or pleasure in doing things: not at all 2. Feeling down, depressed, or hopeless: not at all 3. Trouble falling or staying asleep, or sleeping too much: not at all 4. Feeling tired or having little energy: not at all 5. Poor appetite or overeating: not at all 6. Feeling bad about yourself - or that you are a failure or have let yourself or your family down: not at all 7. Trouble concentrating on things, such as reading the newspaper or watching television: not at all 8. Moving or speaking so slowly that other people could have noticed. Or the opposite - being so fidgety or restless that you have been moving around a lot more than usual: not at all 9. Thoughts that you would be better off or of hurting yourself in some way: not at all Total score: 0 Depression Screening Interpretation: Negative Depression Screening Done: Yes 53468 - PHQ-9 Billing: Yes Source: Developed by Drs. Willem El, Violeta Kwon, Khai Lopez and colleagues, with an educational alex from [employer]. Thrive Questionnaire Date Thrive assessed: 06/11/24 I am a: Patient What is your living situation today?: I have a steady place to live Within the past 12 months, did the food you bought not last and you didn't have the money to get more?: Never true Within the past 12 months, did you worry whether your food would run out before you got money to buy more?: Never true Do you have trouble paying for medicines?: No Do you have trouble getting transportation to medical appointments?: No Do you have trouble paying your heating and electricity bill?: No Do you have trouble taking care of your child, family member or friend?: No Do you have trouble with day-to-day activities such as bathing, preparing meals, shopping, managing finances, etc.?: No Are you currently unemployed and looking for a job?: No Are you interested in more education?: No Please select the resources that you would like help with: None Currently or been in a relationship where the following occur: No concerns reported THRIVE Score: 0 AUDIT C Alcohol Use Questionnaire (AUDIT-C) 1. How often do you have a drink containing alcohol?: Monthly or less 2. How many drinks containing alcohol do you have on a typical day when you are drinking?: 1 or 2 3. How often do you have six or more drinks on one occasion?: Never Total Score: 1 Score Reviewed/Action Taken: Yes VICENTA-7 AMB Questionnaire VICENTA-7 Date VICENTA - 7 assessed: 06/11/24 Feeling nervous, anxious, or on edge: 0 = Not at all Not being able to stop or control worryin = Not at all Worrying too much about different things: 0 = Not at all Trouble relaxin = Not at all Being so restless that it is hard to sit still: 0 = Not at all Becoming easily annoyed or irritable: 0 = Not at all Feeling afraid as if something awful might happen: 0 = Not at all Total VICENTA-7 score (0-4 normal; 5-9 mild; 10-14 moderate; 15-21 severe): 0 Source: Developed by Drs. Willem El, Violeta Kwon, Khai Lopez and colleagues, with an educational alex from [employer]. Review of Systems Const Denies chills, Reports difficulty sleeping (takes OTC Melatonin as needed), Denies fatigue, Denies fever(s) and Denies headache(s) ENT Denies dysphagia, Denies dizziness, Denies otalgia, Denies headache(s), Denies nasal congestion, Reports nasal discharge (on and off), Reports neck pain (recurrent but has improved since her breast reduction surgery), Denies odynophagia and Denies sore throat Card Denies chest pain, Denies palpitations and Denies dyspnea Resp Denies cough, Denies dyspnea and Denies wheezing GI Denies abdominal pain, Denies constipation, Denies dysphagia, Denies heartburn, Denies diarrhea, Denies nausea, Denies odynophagia and Denies vomiting Denies difficulty voiding, Denies nocturia, Denies dysuria and Denies urinary urgency Musc Reports back pain (chronic pain over her upper back bilaterally but (+) improvement lately) and Reports neck pain (recurrent but has improved since her breast reduction surgery) Skin/Breast Denies rash Neuro Denies dizziness and Denies headache(s) Endo Denies fatigue and Denies palpitations Aller/Immun Denies wheezing Physical exam (Primary Care) Vital Signs: Last Vital Signs Pulse 71 06/11/24 10:43 BP 124/82 06/11/24 10:43 Pulse Ox 97 06/11/24 10:43 Oxygen Delivery Method Room Air 06/11/24 10:43 BMI result Body Mass Index 30.3 Tobacco/Smoking Status: Tobacco use Status Tobacco use date assessed 06/11/24 06/11/24 10:49 Patient Tobacco Use Status Never used Tobacco 06/11/24 10:49 e-Cigarette/Vaping Use Never Used 06/11/24 10:49 PHQ-9: PHQ-9 Score PHQ-9: Total score 0 06/11/24 10:49 Depression Screening Interpretation: Negative Thrive Assessment: Date of Thrive Assessment Date Thrive assessed 06/11/24 06/11/24 10:49 Currently or been in a relationship where the following occur: No concerns reported Const General: no acute distress and alert HENMT Ears: TM's normal bilaterally and EAC's normal Throat: Yes posterior oropharynx normal and Yes tonsils normal (no TP congestion) Neck Neck: Yes no lymphadenopathy and Yes supple Thyroid: Thyroid normal Resp Auscultation: clear to auscultation bilaterally, no rales and no wheezes Cardio Rate: regular rate Rhythm: regular rhythm Heart sounds: no murmurs GI Palpation (GI): Soft to palpation and nontender Auscultation: normal bowel sounds General: Yes no CVA tenderness Back/Spine/Pelvis Back: no CVA tenderness Cervical Spine: No cervical muscular tenderness and Cervical spine tenderness (mild) Thoracic/Lumbar Spine: thoracic spinal tenderness (mild) Skin Rashes: no rashes Extrem General: Yes no clubbing, cyanosis or edema Results Reviewed Results Reviewed: Laboratory Tests 06/04/24 06/04/24 09:55 10:19 WBC 5.2 Hgb 12.6 Hct 38.9 Plt Count 198 Sodium 143 Potassium 3.9 Creatinine 0.78 Estimated GFR > 60 Fasting Glucose 94 Calcium 9.9 AST 22 ALT 14 Triglycerides 84 Cholesterol 153 LDL Cholesterol, Calc 79 HDL Cholesterol 58 25-OH Vitamin D Total 40.7 TSH 1.96 Ur Specific [place] 1.020 Urine Protein Negative Urine Glucose (UA) Negative Urine Blood Negative Urine Nitrite Negative Ur Leukocyte Esterase Moderate (2+) H Assessment and Plan Assessment & Plan (1) Pure hypercholesterolemia: Code(s): E78.00 - Pure hypercholesterolemia, unspecified Plan: Results of her labs done last week reviewed and discussed with patient - advised that her cholesterol levels have improved slightly from previous Reinforced low cholesterol diet Continue Atorvastatin 10 mg QD Will recheck her labs and fasting lipids in 4 months for follow up (2) Asthma: Code(s): J45.909 - Unspecified asthma, uncomplicated Qualifiers: Asthma severity: mild Asthma persistence: intermittent Asthma complication type: uncomplicated Qualified Code(s): J45.20 - Mild intermittent asthma, uncomplicated Plan: Stable/controlled Continue Albuterol HFA 2 inhalations Q 6 hours PRN (3) Allergic rhinitis: Code(s): J30.9 - Allergic rhinitis, unspecified Qualifiers: Allergic rhinitis trigger: pollen Allergic rhinitis seasonality: seasonal Qualified Code(s): J30.1 - Allergic rhinitis due to pollen Plan: Continue Fluticasone 50 mcg nasal spray QD PRN She also takes Cetirizine but reports experiencing some sedation often (has taken Loratadine in the past with no relief) Will try switching her to Fexofenadine 180 mg QD PRN instead (4) Bilateral pendulous breasts: Code(s): N64.89 - Other specified disorders of breast Plan: X-rays of the cervical and thoracic spine done previously revealed (+) mild to moderate cervical and thoracic spondylosis and degenerative disc changes Patient states that her neck and back pain have improved a lot since her bilateral reduction mammoplasty with Dr. Jimenez Prior a couple of months ago on 04/02/2024 at [facility] (5) Obesity (BMI 30-39.9): Code(s): E66.9 - Obesity, unspecified Plan: Reinforced diet/exercise as tolerated/lose weight Plan Follow up in 4 months Orders: Orders Complete Blood Count Auto Diff 4 Months D64.9 - Anemia, unspecified Comprehensive [place]. Panel Fast 4 Months E78.00 - Pure hypercholesterolemia, unspecified Lipid Panel 4 Months E78.00 - Pure hypercholesterolemia, unspecified Medications: New fexofenadine 180 mg PO DAILY 90 days PRN 90 tabs 1RF allergy symptoms Coding Level of Care Code Est Pt Level 4 (83807) Complex EM visit Add On G2211 Diagnoses Pure hypercholesterolemia E78.00 Mild intermittent asthma without complication J45.20 Asthma severity: mild Asthma persistence: intermittent Asthma complication type: uncomplicated Seasonal allergic rhinitis due to pollen J30.1 Allergic rhinitis trigger: pollen Allergic rhinitis seasonality: seasonal Bilateral pendulous breasts N64.89 Obesity (BMI 30-39.9) E66.9
== END 2024-06-11 11:36 | disposition home or self-care (01) ==
PROVIDERS: PCP Internal Medicine; Visit Provider Internal Medicine
DX: E78.00 Pure hypercholesterolemia, unspecified (principal); J45.20 Mild intermittent asthma, uncomplicated; E66.9 Obesity, unspecified; Z68.30 Body mass index [BMI] 30.0-30.9, adult; J30.1 Allergic rhinitis due to pollen; N64.89 Other specified disorders of breast
CPT/HCPCS: 99214; G2211

== ENCOUNTER 2024-12-03 14:04 | Outpatient (AMB) | payer OTHER, SELFPAY ==
--- NOTE | 2024-12-03 14:17 | AM.OFFWIN_ITS ---
Intake Vital Signs 12/03/24 14:20 Weight 146 lb BP 120/80 Blood Pressure Location Rt brachial Position Sitting Pulse 81 Pulse Source Pulse Oximeter Temp 98.4 F Temp Source Oral Pulse Oximetry (%) 97 Oxygen Delivery Method Room Air Intake Visit Reasons: EP severe cough, SOB Intake Note: Patient here for severe cough, SOB, congestion that started about 1 week ago now Patient Tobacco Use Status: Never used Tobacco Allergies No Known Allergies Allergy (Verified 12/03/24 14:21) Do you need a note to return to daycare/school/sports/work: No HPI HPI Comments History of Present Illness Details 59 y/o female patient who presents to [facility] walk [facility] clinic with c/o cough, SOB, chest congestion x 1 week. [facility] Medical History (Updated 12/03/24 @ 14:30 by Micaela Kaye NP) Acute respiratory disease Obesity (BMI 30-39.9) Asthma Pure hypercholesterolemia VICENTA (generalized anxiety disorder) Insomnia Allergic rhinitis Surgical History History of hysteroscopy History of eye surgery History of tubal ligation Family History Father Liver problem Alcoholism Substance use disorder Mother Hypertension Maternal Grandmother Heart disease Maternal Grandfather No problems noted. Paternal Grandfather Throat cancer Social History Housing: Apartment Alcohol intake: current Alcohol intake frequency: holidays/special occasions only Patient Tobacco Use Status: Never used Tobacco e-Cigarette/Vaping Use: Never Used Second Hand Smoke Exposure: No service: No Current occupational status: unemployed Cognitive needs: No Hearing needs: No Vision needs: No Review of Systems Const All systems reviewed & are unremarkable except as noted in HPI and below Physical Exam Vital Signs: Last Vital Signs Temp 98.4 F 12/03/24 14:20 Pulse 81 12/03/24 14:20 BP 120/80 12/03/24 14:20 Pulse Ox 97 12/03/24 14:20 Oxygen Delivery Method Room Air 12/03/24 14:20 Const General: cooperative and no acute distress Orientation/consciousness: patient oriented x3 HEENT Head: Yes normocephalic Ears: external ears normal and TM abnormal with fluid behind the TM bilateral General nose exam: Nasal discharge present Face and sinus: Yes sinuses nontender Mouth: moist mucous membranes Throat: Yes uvula midline Resp Effort & Inspection: normal respiratory effort, able to speak in complete sentences, no audible wheezes and no cough Auscultation: clear to auscultation bilaterally, no crackles, no rales, no rhonchi and no wheezes Cardio Heart sounds: S1 normal heart sound present and S2 normal heart sound present Neuro General: patient oriented x3 Assessment & Plan Assessment & Plan (1) Acute respiratory disease: Code(s): J06.9 - Acute upper respiratory infection, unspecified Plan: Ordered SARs OTC cold/cough remedies Acetaminophen for pain relief. (2) Cough: Code(s): R05.9 - Cough, unspecified Qualifiers: Cough type: acute Qualified Code(s): R05.1 - Acute cough Plan: Ordered SARs OTC cold/cough remedies Acetaminophen for pain relief. Orders: Orders SARS-CoV2/FLU/RSV Today J06.9 - Acute upper respiratory infection, unspecified Medications: New benzonatate 100 mg PO TID 90 caps 0RF J06.9 - Acute upper respiratory infection, unspecified, R05.9 - Cough, unspecified dextromethorphan polistirex ER ([facility] 12 hour) 10 mL PO Q12H 89 mL 0RF cough J06.9 - Acute upper respiratory infection, unspecified Coding Level of Care Code Est Pt Level 4 (05376) Diagnoses Acute respiratory disease J06.9 Acute cough R05.1 Cough type: acute Time Spent (min) 20
[2024-12-03 14:20] VITALS: BP 120/80; PULSE 81; TEMP 36.9; O2SAT 97
--- OUTSIDE RECORDS SUMMARY | 2024-12-03 15:07 | XMS_ITS | Clinical Summary ---
Author Organization [employer] Address [address] [place] [address] Care Team Providers Care Forensic Psychologist Name Role Phone Unavailable Primary Care Provider Unavailabl e Allergies No known active allergies Immunizations Name Administration Dates Next Due Pfizer Covid-19 Vaccine 12+ 09/06/2021,,01/10/2021 Pfizer Covid-19 Vaccine 12+ Bivalent 09/27/2022 Social History Tobacco Use Types Packs/Day Years Used Date Smoking Tobacco: Never Assessed Comments Unknown Sex and Gender Information Value Date Recorded Sex Assigned at Not on file Legal Sex Female 1:10 PM EST Gender Identity Not on file Sexual Orientation Not on file Plan of Treatment Health Maintenance Due Date Last Done Comments CT Colonography 1964 Colonoscopy 1964 Colorectal Cancer Screening 1964 Depression Screening 1964 FIT DNA/Cologuard 1964 FIT 1964 FOBT 1964 HIV Screening 1964 SDOH Screening 1964 Sigmoidoscopy 1964 Alcohol/Substance Use Screening 1976 Tobacco Screening 1976 Hepatitis C Screening 1982 DTaP/Tdap/Td Vaccines (1 - Tdap) 1983 Pap Smear 1985 Cervical Cancer Screening 1994 HPV/Cotest 1994 Mammogram 2004 Pneumococcal Vaccine: 50+ Years (1 of 1 - PCV) 2014 Zoster Vaccines (1 of 2) 2014 COVID-19 Vaccine ( - season) 2024 09/27/2022, 09/06/2021, 02/04/2021, Additional history exists Influenza Vaccine (#1) 2024 RSV Patients and Patients Aged 60 years or older (1 - 1-dose 75+ series) 2039 HIB Vaccines Aged Out No longer eligi ble based on patient's age to complete this topic HPV Vaccines Aged Out No longer eligi ble based on patient's age to complete this topic Hepatitis A Vaccines Aged Out No long er eligible based on patient's age to complete this topic Hepatitis B Vaccines Aged Out No long er eligible based on patient's age to complete this topic IPV Vaccines Aged Out No longer eligi ble based on patient's age to complete this topic Meningococcal Vaccine Aged Out No rima yessenia eligible based on patient's age to complete this topic RSV under 20 months Aged Out No longe r eligible based on patient's age to complete this topic Rotavirus Vaccines Aged Out No longer eligible based on patient's age to complete this topic
== END 2024-12-03 15:12 | disposition home or self-care (01) ==
PROVIDERS: PCP Internal Medicine; Visit Provider Nurse Practitioner Family
DX: J06.9 Acute upper respiratory infection, unspecified (principal); R05.1 Acute cough

== ENCOUNTER 2024-12-03 14:04 | Outpatient (REF) | payer OTHER, SELFPAY ==
[2024-12-03 17:38] LABS: Influenza A PCR NEGATIVE (Negative); Influenza B PCR NEGATIVE (Negative); Resp Syncy Virus RNA Qual PCR NEGATIVE (Negative); SARS COV2 PCR INHOUSE NEGATIVE (Negative)
== END 2024-12-03 14:05 | disposition home or self-care (01) ==
LOC: HO.LAB 14:04
PROVIDERS: PCP Internal Medicine; Visit Provider Nurse Practitioner Family
DX: J06.9 Acute upper respiratory infection, unspecified (principal)
CPT/HCPCS: 0241U; 99212

== ENCOUNTER 2024-12-30 09:03 | Outpatient (REF) | payer OTHER, SELFPAY ==
[2024-12-30 09:37] LABS: MANUAL DIFF FLAG NO
[2024-12-30 10:35] LABS: Basophils Percent Auto 0.5 % (0-2); Eosinophils Absolute Auto 0.2 X10*3/uL (0.0-0.4); Eosinophils Percent Auto 3.2 % (0-4); Hematocrit 38.5 % (37.0-47.0); Hemoglobin 12.4 g/dl (12.0-16.0); Imm Gran Abs Auto 0.01 X10*3/uL (0.00-0.03); Imm Gran Pct Auto 0.2 % (0.0-0.4); Lymphocytes Absolute Auto 1.5 X10*3/uL (1.2-4.9); Lymphocytes Percent Auto 26.5 % (20-40); Mean Corpuscular HGB Conc 32.2 g/dl (31.0-35.0); Mean Corpuscular Hemoglobin 26.4 pg (27.0-33.0); Mean Corpuscular Volume 82.1 fL (80.0-98.0); Mean Platelet Volume 11.6 fL (9.4-12.3); Monocytes Absolute Auto 0.4 X10*3/uL (0.1-1.2); Monocytes Percent Auto 6.6 % (2-11); Neutrophils Absolute Auto 3.6 x10*3/uL (2.0-8.3); Platelet Count 192 X10*3/uL (160-400); Red Blood Count 4.69 X10*6/uL (4.20-5.50); Red Cell Distribution Width 14.1 % (11.0-16.0); White Blood Count 5.6 X10*3/uL (4.8-10.8)
[2024-12-30 11:09] LABS: Appearance Urine Clear; Color Urine Yellow; Glucose Urine UA Negative (Negative); Leukocyte Esterase Urine Small (1+) (Negative); Nitrite Urine Negative (Negative); Specific Gravity - Urine 1.025 (1.005-1.025); UMIC TRIGGER UACC YES; Urine Blood Negative (Negative); Urine Ketones Negative (Negative); Urine Protein Negative (Neg-Trace)
[2024-12-30 11:18] LABS: Alanine Aminotransferase 19 U/L (0-31); Albumin Level 4.2 g/dL (3.5-5.0); Alkaline Phosphatase 120 U/L (39-117); Anion Gap 11 (12-20); Aspartate Amino Transferase 27 U/L (5-31); Bilirubin Total 0.4 mg/dL (0.0-1.0); Blood Urea Nitrogen 23 mg/dL (9-16); Calcium 9.1 mg/dL (8.4-10.2); Carbon Dioxide 26 mmol/L (22-29); Chloride 109 mmol/L (96-108); Cholesterol 151 mg/dL (<200); Estimated Glomerular Filt Rate > 60; Glucose Fasting 81 mg/dL (60-99); HDL Cholesterol 61 mg/dL (>40); LDL Cholesterol Calculated 80 mg/dL (<100); Potassium 3.9 mmol/L (3.3-5.1); Sodium 142 mmol/L (135-145); Total Protein 7.4 g/dL (6.5-8.0); Triglycerides 54 mg/dL (<150)
[2024-12-30 11:30] LABS: Bacteria Urine None Seen (None Seen); Hyaline Casts Urine 0-2 /LPF (0-2); RBC Urine 0-2 /HPF (0-2); Squamous Epithelial Cell Urine 0-2 /HPF (0-2); UACC Culture Trigger YES; WBC Urine 0-5 /HPF (0-5)
== END 2024-12-30 09:04 | disposition home or self-care (01) ==
LOC: HO.LAB 09:03
PROVIDERS: PCP Internal Medicine; Visit Provider Internal Medicine
DX: E78.00 Pure hypercholesterolemia, unspecified (principal); R30.0 Dysuria
CPT/HCPCS: 36415; 80053; 80061; 81001; 81003; 85025; 87086

== ENCOUNTER 2025-01-01 10:41 | Outpatient (AMB) | payer OTHER, SELFPAY ==
--- NOTE | 2025-01-01 10:43 | A.OFFPC_ITS ---
Vital Signs 01/01/25 10:44 Height 4 ft 10 in Weight 141 lb 6 oz BMI 29.5 BP 124/82 Blood Pressure Location Lt brachial Position Sitting Pulse 65 Pulse Source Pulse Oximeter Pulse Oximetry (%) 98 Oxygen Delivery Method Room Air Intake Visit Reasons: hyperlipoidemia, asthma, allergic rhinitis Rn Post Partum Required: No Accompanied by: Self / Same As Patient Allergies No Known Allergies Allergy (Verified 01/01/25 11:11) Medication List - Last Reconciled 01/01/25 by Chente Bill MD acetaminophen 1,000 mg (2 x 500 mg) PO Q6H PRN atorvastatin 10 mg PO DAILY 90 days fexofenadine 180 mg PO DAILY PRN 90 days fluticasone propionate 50 mcg/actuation 2 sprays intranasal DAILY 30 days Ventolin HFA 90 mcg/actuation (albuterol sulfate) 2 puffs inhalation Q6H PRN 30 days NS Tobacco use date assessed: 01/01/25 Dental Screening Dental Screen Date: 01/01/25 Did you have a dental visit in the last 12 months?: Yes Did you have a dental problem in the last 6 months where you did not have access to dental care?: No HPI hyperlipoidemia, asthma, allergic rhinitis HPI Details Patient comes in today for follow up of her hyperlipidemia, asthma and allergic rhinitis States that she currently feels okay She denies any headaches or dizziness Denies any chest pains, no SOB No nausea/vomiting, no abdominal pain No change in bowel habits noted Needs her Atorvastatin Rx refilled She had her follow up labs done a couple of days ago - to discuss her results REPLACED BY [facility] Medical History Acute respiratory disease Obesity (BMI 30-39.9) Asthma Pure hypercholesterolemia VICENTA (generalized anxiety disorder) Insomnia Allergic rhinitis Surgical History (Updated 01/01/25 @ 12:23 by Chente Bill MD) Hx of reduction mammoplasty History of hysteroscopy History of eye surgery History of tubal ligation Family History Father Liver problem Alcoholism Substance use disorder Mother Hypertension Maternal Grandmother Heart disease Maternal Grandfather No problems noted. Paternal Grandfather Throat cancer Social History (Reviewed 01/01/25 @ 10:45 by MICHAEL Singh Housing: Apartment Alcohol intake: current Alcohol intake frequency: holidays/special occasions only Patient Tobacco Use Status: Never used Tobacco e-Cigarette/Vaping Use: Never Used Second Hand Smoke Exposure: No service: No Current occupational status: unemployed Cognitive needs: No Hearing needs: No Vision needs: No Questionnaire PHQ-9 Over the last 2 weeks, how often have you been bothered by any of the following problems? 1. Little interest or pleasure in doing things: not at all 2. Feeling down, depressed, or hopeless: not at all 3. Trouble falling or staying asleep, or sleeping too much: not at all 4. Feeling tired or having little energy: not at all 5. Poor appetite or overeating: not at all 6. Feeling bad about yourself - or that you are a failure or have let yourself or your family down: not at all 7. Trouble concentrating on things, such as reading the newspaper or watching television: not at all 8. Moving or speaking so slowly that other people could have noticed. Or the opposite - being so fidgety or restless that you have been moving around a lot more than usual: not at all 9. Thoughts that you would be better off or of hurting yourself in some way: not at all Total score: 0 Depression Screening Interpretation: Negative Depression Screening Done: Yes 97969 - PHQ-9 Billing: Yes Source: Developed by Drs. Willem El, Violeta Kwon, Khai Lopez and colleagues, with an educational alex from [employer]. Thrive Questionnaire Date Thrive assessed: 01/01/25 I am a: Patient What is your living situation today?: I have a steady place to live Within the past 12 months, did the food you bought not last and you didn't have the money to get more?: Never true Within the past 12 months, did you worry whether your food would run out before you got money to buy more?: Never true Do you have trouble paying for medicines?: No Do you have trouble getting transportation to medical appointments?: No Do you have trouble paying your heating and electricity bill?: No Do you have trouble taking care of your child, family member or friend?: No Do you have trouble with day-to-day activities such as bathing, preparing meals, shopping, managing finances, etc.?: No Are you currently unemployed and looking for a job?: No Are you interested in more education?: No Please select the resources that you would like help with: None Currently or been in a relationship where the following occur: No concerns reported THRIVE Score: 0 AUDIT C Alcohol Use Questionnaire (AUDIT-C) 1. How often do you have a drink containing alcohol?: Monthly or less 2. How many drinks containing alcohol do you have on a typical day when you are drinking?: 1 or 2 3. How often do you have six or more drinks on one occasion?: Never Total Score: 1 Score Reviewed/Action Taken: Yes VICENTA-7 AMB Questionnaire VICENTA-7 Date VICENTA - 7 assessed: 01/01/25 Feeling nervous, anxious, or on edge: 0 = Not at all Not being able to stop or control worryin = Not at all Worrying too much about different things: 0 = Not at all Trouble relaxin = Not at all Being so restless that it is hard to sit still: 0 = Not at all Becoming easily annoyed or irritable: 0 = Not at all Feeling afraid as if something awful might happen: 0 = Not at all Total VICENTA-7 score (0-4 normal; 5-9 mild; 10-14 moderate; 15-21 severe): 0 Source: Developed by Drs. Willem El, Violeta Kwon, Khai Lopez and colleagues, with an educational alex from [employer]. Review of Systems Const Denies chills, Reports difficulty sleeping (takes OTC Melatonin as needed), Denies fatigue, Denies fever(s) and Denies headache(s) ENT Denies dysphagia, Denies dizziness, Denies otalgia, Denies headache(s), Reports neck pain (recurrent but has improved since her breast reduction surgery), Denies odynophagia and Denies sore throat Card Denies chest pain, Denies palpitations and Denies dyspnea Resp Denies chest congestion, Denies cough and Denies dyspnea GI Denies abdominal pain, Denies constipation, Denies dysphagia, Denies heartburn, Denies diarrhea, Denies nausea, Denies odynophagia and Denies vomiting Denies difficulty voiding, Denies nocturia, Denies dysuria and Denies urinary urgency Musc Reports back pain (chronic pain over her upper back bilaterally but (+) improvement lately) and Reports neck pain (recurrent but has improved since her breast reduction surgery) Skin/Breast Denies rash Neuro Denies dizziness and Denies headache(s) Endo Denies fatigue and Denies palpitations Physical exam (Primary Care) Vital Signs: Last Vital Signs Pulse 65 01/01/25 10:44 BP 124/82 01/01/25 10:44 Pulse Ox 98 01/01/25 10:44 Oxygen Delivery Method Room Air 01/01/25 10:44 BMI result Body Mass Index 29.5 Tobacco/Smoking Status: Tobacco use Status Tobacco use date assessed 01/01/25 01/01/25 10:51 Patient Tobacco Use Status Never used Tobacco 01/01/25 10:51 e-Cigarette/Vaping Use Never Used 01/01/25 10:51 PHQ-9: PHQ-9 Score PHQ-9: Total score 0 01/01/25 10:51 Depression Screening Interpretation: Negative Thrive Assessment: Date of Thrive Assessment Date Thrive assessed 01/01/25 01/01/25 10:51 Currently or been in a relationship where the following occur: No concerns reported Const General: no acute distress and alert HENMT Ears: TM's normal bilaterally and EAC's normal Throat: Yes posterior oropharynx normal and Yes tonsils normal (no TP congestion) Neck Neck: Yes supple and No lymphadenopathy Thyroid: Thyroid normal Resp Auscultation: clear to auscultation bilaterally, no rales and no wheezes Cardio Rate: regular rate Rhythm: regular rhythm Heart sounds: no murmurs GI Palpation (GI): Soft to palpation and nontender Auscultation: normal bowel sounds General: Yes no CVA tenderness Back/Spine/Pelvis Back: no CVA tenderness Cervical Spine: No cervical muscular tenderness and Cervical spine tenderness (m ild) Thoracic/Lumbar Spine: thoracic spinal tenderness (mild) Skin Rashes: no rashes Extrem General: Yes no clubbing, cyanosis or edema Results Reviewed Results Reviewed: Laboratory Tests 12/30/24 12/30/24 09:32 09:34 WBC 5.6 Hgb 12.4 Hct 38.5 Plt Count 192 Sodium 142 Potassium 3.9 Creatinine 0.69 Estimated GFR > 60 Fasting Glucose 81 Calcium 9.1 D AST 27 ALT 19 Triglycerides 54 Cholesterol 151 LDL Cholesterol, Calc 80 HDL Cholesterol 61 Ur Specific [place] 1.025 Urine Protein Negative Urine Glucose (UA) Negative Urine Blood Negative Urine Nitrite Negative Ur Leukocyte Esterase Small (1+) H Coding Level of Care Code Est Pt Level 4 (26700) Complex EM visit Add On G2211 Diagnoses Pure hypercholesterolemia E78.00 Mild intermittent asthma without complication J45.20 Asthma severity: mild Asthma persistence: intermittent Asthma complication type: uncomplicated Seasonal allergic rhinitis due to pollen J30.1 Allergic rhinitis trigger: pollen Allergic rhinitis seasonality: seasonal Overweight (BMI 25.0-29.9) E66.3 Additional Codes PHQ-9 - 79765 - PHQ-9 Billing: Yes ([id number]) Assessment & Plan Assessment & Plan (1) Pure hypercholesterolemia: Code(s): E78.00 - Pure hypercholesterolemia, unspecified Category: Medical Plan: Results of her labs done a couple of days ago reviewed and discussed with patient - her cholesterol levels have remained well-controlled on her recent labs Reinforced low cholesterol diet Continue Atorvastatin 10 mg QD - Rx refilled Will recheck her labs and fasting lipids in 4 months for follow up (2) Asthma: Code(s): J45.909 - Unspecified asthma, uncomplicated Category: Medical Qualifiers: Asthma severity: mild Asthma persistence: intermittent Asthma complication type: uncomplicated Qualified Code(s): J45.20 - Mild intermittent asthma, uncomplicated Plan: Controlled Continue Albuterol HFA 2 inhalations Q 6 hours PRN (3) Allergic rhinitis: Code(s): J30.9 - Allergic rhinitis, unspecified Category: Medical Qualifiers: Allergic rhinitis trigger: pollen Allergic rhinitis seasonality: seasonal Qualified Code(s): J30.1 - Allergic rhinitis due to pollen Plan: Continue Fluticasone 50 mcg nasal spray QD PRN and Fexofenadine 180 mg QD PRN She has taken Cetirizine in the past but reports experiencing some sedation often while on it (4) Overweight (BMI 25.0-29.9): Code(s): E66.3 - Overweight Category: Medical Plan: Reinforced diet/exercise as tolerated/lose weight - she has lost some weight since her last visit Plan Follow up in 4 months Orders: Orders Complete Blood Count Auto Diff 4 Months D64.9 - Anemia, unspecified Lipid Panel 4 Months E78.00 - Pure hypercholesterolemia, unspecified Comprehensive [place]. Panel Fast 4 Months E78.00 - Pure hypercholesterolemia, unspecified Medications: Refilled atorvastatin 10 mg PO DAILY 90 days 90 tabs 1RF
[2025-01-01 10:44] VITALS: BP 124/82; PULSE 65; O2SAT 98; BMI 29.5
== END 2025-01-01 11:19 | disposition home or self-care (01) ==
LOC: HO.HMCH 10:41
PROVIDERS: PCP Internal Medicine; Visit Provider Internal Medicine
DX: E78.00 Pure hypercholesterolemia, unspecified (principal); J45.20 Mild intermittent asthma, uncomplicated; J30.1 Allergic rhinitis due to pollen; E66.3 Overweight

== ENCOUNTER → 2025-01-01 10:41 | Outpatient (BNVA) | payer OTHER, SELFPAY | PROVIDERS: PCP Internal Medicine; Visit Provider Internal Medicine | DX: E78.00 Pure hypercholesterolemia, unspecified (principal); J45.20 Mild intermittent asthma, uncomplicated; J30.1 Allergic rhinitis due to pollen; E66.3 Overweight | CPT/HCPCS: 96127; 99212 ==

== ENCOUNTER 2025-04-02 10:22 | Outpatient (REF) | payer OTHER, SELFPAY ==
--- NOTE | ~2025-04-02 | MM_ITS ---
EXAMINATION: MM SCREENING DIGITAL BREAST TOMOSYNTHESIS, BILATERAL CLINICAL INFORMATION: Screening. Asymptomatic. COMPARISON: Mammography: Comparison is made with available priors TECHNIQUE: Digital breast mammography with tomosynthesis is performed in both the craniocaudal and mediolateral oblique views along with computer-aided detection (CAD). FINDINGS: There are scattered areas of fibroglandular density (ACR BI-RADS breast composition Category b). One year out for bilateral reduction mammoplasty. Right: There are no significant masses, abnormal calcifications, or other abnormalities. Left: Focal asymmetry in the upper inner left breast anterior to middle depth with associated calcifications this could be related to recent reduction mammoplasty changes. No suspicious other abnormal findings. MM/MM tomosynthesis screening BI IMPRESSION: Additional imaging is recommended ASSESSMENT: BI-RADS BI-RADS 0 - Incomplete: Needs additional Imaging. RECOMMENDATION: 1. Additional views of the left breast with magnification views. 2. Targeted ultrasound if warranted after review of the additional views. 3. Radiology department staff will contact the patient for additional imaging. Additional Imaging required This examination should not preclude the clinical evaluation of a suspicious palpable abnormality. This patient's information was entered into a reminder system with a target due date for their next mammogram. Electronically signed by: Krystin Valencia DO 04/08/2025 01:09 PM EDT
--- OUTSIDE RECORDS SUMMARY | 2025-04-02 10:40 | XMS_ITS | Clinical Summary ---
Author Organization [facility] [employer] Address [address] [place] [address] Care Team Providers Care Stock Preparation Supervisor Name Role Phone Unavailable Primary Care Provider Unavailabl e Allergies No known active allergies Immunizations Immunization Administration Dates Next Due Pfizer Covid-19 Vaccine [...] Screening 1964 SDOH Screening 1964 Sigmoidoscopy 1964 Disability Screening 1964 Alcohol/Substance Use Screening 1976 Tobacco Screening 1976 Hepatitis C Screening 1982 DTaP/Tdap/Td Vaccines (1 - Tdap) 1983 Pap Smear 1985 Cervical Cancer Screening 1994 HPV/Cotest 1994 Mammogram 2004 Pneumococcal Vaccine: 50+ Years (1 of 1 - PCV) 2014 Zoster Vaccines (1 of 2) 2014 COVID-19 Vaccine ( - season) 2024 09/27/2022, 09/06/2021, 02/04/2021, Additional history exists Influenza Vaccine (Season Ended) 2025 RSV Patients and Patients Aged 60 years [...] patient's age to complete this topic Meningococcal B Vaccine Aged Out No l onger eligible based on patient's age to complete [...]
== END 2025-04-02 10:23 | disposition home or self-care (01) ==
LOC: HO.MAMMO 10:22
PROVIDERS: PCP Internal Medicine; Visit Provider Internal Medicine
DX: Z12.31 Encounter for screening mammogram for malignant neoplasm of breast (principal); R92.8 Other abnormal and inconclusive findings on diagnostic imaging of breast
CPT/HCPCS: 77063; 77067

== ENCOUNTER → 2025-04-02 10:30 | Outpatient (BNV) | payer OTHER, SELFPAY | PROVIDERS: PCP Internal Medicine; Visit Provider Internal Medicine | DX: Z12.31 Encounter for screening mammogram for malignant neoplasm of breast (principal) | CPT/HCPCS: 77063; 77067 ==

== ENCOUNTER 2025-05-25 13:25 | Outpatient (REF) | payer OTHER, SELFPAY ==
--- NOTE | ~2025-05-25 | US_ITS ---
EXAMINATIONS: 1. MM DIAGNOSTIC DIGITAL BREAST TOMOSYNTHESIS, LEFT 2. Targeted ultrasound of the left breast CLINICAL INFORMATION: Callback from screening for left breast focal asymmetry in the upper inner quadrant anterior/middle depth with associated calcifications that could be related to recent reduction mammoplasty. COMPARISON: April 02, 2025 TECHNIQUE: Digital breast tomosynthesis is performed in both the craniocaudal and ML 90 degrees views along with computer-aided detection (CAD). Synthesized 2D images are generated from the tomosynthesis. Spot compression tomosynthesis and spot magnified compression views were also obtained. FINDINGS: BREAST COMPOSITION: There are scattered areas of fibroglandular density (ACR BI-RADS breast composition Category b). LEFT BREAST: Previously described focal asymmetry in the upper inner quadrant is redemonstrated on today's images at approximately 3.0-5.4 cm from the nipple, and is associated with amorphous calcifications. Targeted ultrasound of the left breast was performed at the location of the mammographic finding. The survey shows a 0.5 x 0.4 x 0.4 cm ill-defined hypoechoic area containing small echogenic foci, likely representing calcifications, located at 11 o'clock position 3 cm from the nipple. No internal vascularity demonstrated with color Doppler evaluation. Findings likely correlates with the mammographic finding. US/US breast LT limited mamm only IMPRESSION: LEFT BREAST: Focal asymmetry in the upper inner quadrant correlating with a 0.5 cm hypoechoic area, containing calcifications, at 11 o'clock position 3 cm from the nipple. As previously stated, the finding could be related to the recent reduction mammoplasty. Probably benign. A 6-month follow-up left breast mammogram and ultrasound are recommended. ASSESSMENT: BI-RADS 3 - Probably benign finding(s) - 6 month follow-up suggested RECOMMENDATION: 6 Month F/U Results were provided to the patient at time of visit by the technologist. This patient's information was entered into a reminder system with a target due date for their next mammogram. Electronically signed by: Yvan Severino MD 05/25/2025 02:42 PM EDT
--- OUTSIDE RECORDS SUMMARY | 2025-05-25 14:13 | XMS_ITS | Clinical Summary ---
Author Organization [facility] Address [address] [place] [id number] Phone Care Team Providers Care Sharemilker Name Role Phone Chente Bill MD Primary Care Provider [phone] Allergies No known active allergies Medications atorvastatin (LIPITOR) 10 MG tablet Take 10 mg by mouth daily. Active cetirizine (ZYRTEC) 10 MG tablet 11/14/2023 Active ondansetron (ZOFRAN) 4 MG tablet Take 1 tablet (4 mg total) by mouth every 8 (eight) hours as needed for nausea. 30 tablet 3 03/17/2024 Active oxyCODONE-aceta minophen (PERCOCET) 5-325 mg per tablet Take 1 tablet by mouth every 4 (four) hours as needed for pain (specific location in comments). Partial fill ok 30 tablet 03/17/2024 Active docusate sodium (COLACE) 100 MG capsule TAKE 1 CAPSULE BY MOUTH EVERY DAY 30 capsule 03/17/2024 Active senna (SENOKOT) 8.6 mg tablet Take 1 tablet by mouth 2 (two) times a day. 30 tablet 04/09/2024 Active Active Problems Problem Noted Date Diagnosed Date Macromastia 03/17/2024 Chronic neck and back pain 03/17/2024 Family History Medical History Relation Comments Hypertension Mother Relation Status Comments Mother Alive Social History Tobacco Use Types Packs/Day Years Used Date Smoking Tobacco: Never Tobacco Cessation:Counseling Given: Not Answered Alcohol Use Standard Drinks/Week Comments Not Currently 0 (1 standard drink = 0.6 oz pur e alcohol) Education Answer Date Recorded Are you interested in more education? Not on virgilio e 11/01/2023 Are you concerned about learning? Not on file 11/01/2023 No 11/01/2023 No 11/01/2023 Digital Access Answer Date Recorded No 11/01/2023 No 11/01/2023 Reliable internet access at home? Not on file 11/01/2023 Device with a working camera? Not on file Intimate Partner Violence Answer Date R ecorded Are you denied basic needs s uch as food, clothing, or medical care? No 04/02/2024 In the past 12 months have y ou been in a relationship with a person who hurts, threatens, or tries to control you? No 04/02/2024 Are you denied basic needs s uch as food, clothing, or medical care? No 04/02/2024 In the past 12 months have y ou been in a relationship with a person who hurts, threatens, or tries to control you? No 04/02/2024 Comments No Sex and Gender Information Value Date Recorded Sex Assigned at Not on file Legal Sex Female 11:13 AM EST Gender Identity Not on file Sexual Orientation Not on file Last Filed Vital Signs Vital Sign Reading Time Taken Comments Blood Pressure 114/73 04/02/2024 11:45 AM EDT Pulse 62 04/02/2024 11:45 AM EDT Temperature 36.7 C (98.1 F) 04/02/2024 10:10 AM EDT Respiratory Rate 16 04/02/2024 11:45 AM EDT Oxygen Saturation 93% 04/02/2024 11:45 AM EDT Inhaled Oxygen Concentration - - Weight 68.1 kg (150 lb 3.2 oz) 03/17/2024 10:05 AM EDT Height 146.6 cm (4' 9.7 ) 03/17/2024 10:05 AM ED T Body Mass Index 31.72 03/17/2024 10:05 AM EDT Plan of Treatment Health Maintenance Due Date Last Done Comments LIPID PANEL 1964 DEPRESSION SCREENING 1976 HEPATITIS C SCREENING 1982 HIV ONE-TIME SCREENING (18-6 5 YEARS) 1982 PAP SMEAR 1985 SMOKING STATUS SCREENING (On ce After 26 Yrs) 1990 SCREENING FOR DIABETES 1999 MAMMOGRAM 2004 COLOGUARD 2009 COLONOSCOPY 2009 COLORECTAL CANCER SCREENING 2009 FIT TEST 2009 FOBT 2009 SIGMOIDOSCOPY 2009 VIRTUAL COLONOSCOPY 2009 PNEUMOCOCCAL VACCINES (50+ years) (1 of 1 - PCV) 2014 ZOSTER VACCINES (1 of 2) 2014 COVID-19 VACCINE (4 - 2023-2 5 season) 2024 09/06/2021, 02/04/2021, 01/10/2021 Adult Td,Tdap Booster 10/24/2026 10/24/2016 RSV VACCINE (1 - 1-dose 75+ series) 2039 HEPATITIS A VACCINES Aged Out No long er eligible based on patient's age to complete this topic HIB VACCINES Aged Out No longer eligi ble based on patient's age to complete this topic MENINGOCOCCAL VACCINES (ACWY) Aged Out No longer eligible based on patient's age to complete this topic MENINGOCOCCAL VACCINES (B) Aged Out N o longer eligible based on patient's age to complete this topic Medical Devices Not on file Insurance ACO ACO [facility] ACO Advance Directives For more information, please contact: [phone] (9AM - 5PM [facility], Saturday-Saturday) Documents on File Type Date Recorded Patient Spinner Frame Expl anation Healthcare Proxy 04/02/2024 * Full Code (Latest Code Status on File) Date Activated Date Inactivated Comments 04/02/2024 7:14 AM Question Answer Comments Code Status Confirmed With: Patient Care Teams Sharemilker Relationship Specialty Start Date End Date Chente Bill MD [address] [place] [address] [place] [address] PCP - General Internal Medicine 11/01/23 Additional Source Comments The information contained in this document represents components of the legal health record. It is not the complete legal health record.[facility]
--- OUTSIDE RECORDS SUMMARY | 2025-05-25 14:13 | XMS_ITS | Clinical Summary ---
Author Organization [facility] Address [address] [facility] [facility] [address] [place] [address] Care Team Providers Care Wood Molder Name Role Phone Unavailable Primary Care Provider [...] Vaccines (1 of 2) 2014 COVID-19 Vaccine (5 - season) 2024 09/27/2022, 09/06/2021, 02/04/2021, Additional history exists Influenza Vaccine (#1) 2025 RSV Patients and Patients Aged 60 [...]
== END 2025-05-25 13:26 | disposition home or self-care (01) ==
LOC: HO.MAMMO 13:25
PROVIDERS: PCP Internal Medicine; Visit Provider Internal Medicine
DX: N64.89 Other specified disorders of breast (principal)
CPT/HCPCS: 76642; 77061; 77065

== ENCOUNTER → 2025-05-25 13:30 | Outpatient (BNV) | payer OTHER, SELFPAY | PROVIDERS: PCP Internal Medicine; Visit Provider Radiology Body Imaging | DX: R92.8 Other abnormal and inconclusive findings on diagnostic imaging of breast (principal) | CPT/HCPCS: 76642; 77061; 77065 ==